=== PATIENT | male | born 1945 | race African-American/Black ===

== ENCOUNTER 2020-09-06 12:12 | Outpatient (REF) | payer MEDICARE, SELFPAY ==
[2020-09-06 12:22] LABS: MANUAL DIFF FLAG NO
[2020-09-06 12:26] LABS: Basophils Percent Auto 0.5 % (0-2); Eosinophils Absolute Auto 0.3 X10*3/uL (0.0-0.4); Eosinophils Percent Auto 3.9 % (0-4); Hematocrit 22.8 % (42-52); Imm Gran Abs Auto 0.04 X10*3/uL (0.00-0.03); Imm Gran Pct Auto 0.5 % (0.0-0.4); Lymphocytes Absolute Auto 2.2 X10*3/uL (1.2-4.9); Lymphocytes Percent Auto 27.4 % (20-40); Mean Corpuscular HGB Conc 29.8 g/dl (31.0-36.0); Mean Corpuscular Hemoglobin 29.6 pg (27.0-33.0); Mean Corpuscular Volume 99.1 fL (80-98); Monocytes Absolute Auto 0.6 X10*3/uL (0.1-1.2); Neutrophils Absolute Auto 4.9 X10*3/uL (2.0-8.3); Neutrophils Percent Auto 60.7 % (45-73); Platelet Count 396 X10*3/uL (160-400); Red Cell Distribution Width 17.2 % (11.0-16.0)
[2020-09-06 13:24] LABS: Hemoglobin 6.8 g/dl (14.0-18.0)
[2020-09-06 13:29] LABS: Albumin Level 3.5 g/dL (3.5-5.0); Calcium 8.4 mg/dL (8.4-10.2); Magnesium 1.7 mg/dL (1.6-2.6); Phosphorus 5.3 mg/dL (2.7-4.5)
[2020-09-06 13:54] LABS: Vitamin D 25-OH Total 36.5 ng/mL (>30)
[2020-09-06 14:02] LABS: Renal w Reflex Lab Use Only Order verified
[2020-09-06 14:16] LABS: Anion Gap 16 (12-20); Blood Urea Nitrogen 46 mg/dL (9-16); Carbon Dioxide 23 mmol/L (22-29); Chloride 106 mmol/L (96-108); Estimated Glomerular Filt Rate 16; Potassium 5.3 mmol/l (3.3-5.1); Sodium 140 mmol/L (135-145)
[2020-09-08 15:07] LABS: Calcium (PTHI) 8.4 mg/dL (8.6-10.3); PTHI 118 pg/mL (14-64)
== END 2020-09-06 12:13 | disposition home or self-care (01) ==
LOC: HO.HVNA 12:12
PROVIDERS: Visit Provider Internal Medicine Nephrology
DX: N17.9 Acute kidney failure, unspecified (principal); E11.21 Type 2 diabetes mellitus with diabetic nephropathy; E11.22 Type 2 diabetes mellitus with diabetic chronic kidney disease; N18.4 Chronic kidney disease, stage 4 (severe); E11.51 Type 2 diabetes mellitus with diabetic peripheral angiopathy without gangrene; K85.90 Acute pancreatitis without necrosis or infection, unspecified; M10.9 Gout, unspecified; I22.2 Subsequent non-ST elevation (NSTEMI) myocardial infarction; I48.91 Unspecified atrial fibrillation
CPT/HCPCS: 36415; 80051; 82040; 82306; 82310; 82565; 83735; 83970; 84100; 84520; 85025

== ENCOUNTER 2020-09-12 13:50 | Emergency (ER) | payer OTHER, MEDICARE, SELFPAY ==
[2020-09-12 14:02] VITALS: BP 116/61; PULSE 74; RESP 15; TEMP 36.6; O2SAT 100; BMI 35.4
--- NOTE | 2020-09-12 14:04 | ED.GENADULT ---
HPI - General Adult General Chief complaint: General Medical Stated complaint: CENTRAL PORT REMOVAL Time Seen by Provider: 09/12/20 14:14 Source: patient, EMS and other ( assistant county attorney) Mode of arrival: EMS Limitations: no limitations History of Present Illness HPI narrative: patient was sent to for PermCath removal by his assistant county attorney Dr. Lopez. He was informed that it was not necessary due to patient no longer being on dialysis. Patient denies any physical complaints. Related Data Allergies Allergy/AdvReac Type Severity Reaction Status Date / Time gabapentin [GABAPENTIN] Allergy Unknown UNKNOWN Verified 09/12/20 17:23 pregabalin Allergy Unknown Cough Verified 09/12/20 17:23 Review of Systems Review of Systems: Patient denies any physical complaints [facility] Past Medical History Medical History (Updated 09/12/20 @ 19:25 by HOLLAND Reid) Arthritis Diabetes 1.5, managed as type 1 Gout High cholesterol HTN (hypertension) Social History Social History Alcohol intake: current Alcohol intake frequency: a few times a week Alcohol type: hard liquor Smoking Status: Never smoker Use of substances other than those prescribed or required for medical reasons: No Advance Directives: Yes Advance Directives Information Provided: Yes Advance Directives on File: No Physical Exam Vital Signs: Vital Signs: Vital Signs Temp Pulse Resp BP Pulse Ox 09/12/20 17:13 98.3 F 71 17 172/70 H 98 09/12/20 14:02 98 F 74 15 116/61 100 Body Mass Index 35.4 Const: General: cooperative, healthy appearing, comfortable, no acute distress, well developed and alert Orientation/consciousness: oriented to person, oriented to place, oriented to time and patient oriented x3 HENMT: Head: Yes normal to inspection Ears: hearing grossly normal bilaterally Eyes: General: appearance normal, both eyes and all related structures Neck: Neck: Yes normal visual inspection and Yes full ROM Chest: Other: Area of permacath negative for redness, pus discharge, tenderness or foul odor. Chest palpation & inspection: normal inspection of the chest and normal palpation of entire chest wall Resp: Effort & Inspection: normal respiratory effort and able to speak in complete sentences Cardio: Jugular venous distension: no JVD Heart sounds: S1 normal heart sound present and S2 normal heart sound present GI: Inspection: Yes normal to inspection Skin: General skin exam: no rashes or lesions noted Neuro: General: oriented to person, oriented to place, oriented to time and patient oriented x3 Extrem: General: Yes normal to inspection and Yes full ROM Course Course Course Narrative: spoke with Dr. Lopez who confirm that he won a PermCath removed. Spoke with IR and they state they will take patients today for removal of PermCath. Dr. Lopez thinks patient might need a blood transfusion due to crit being 6.8 on the 06 of September. Will repeat labs. Reevaluation(s) Reevaluation #1: Repeat labs are at baseline. Patient does not need blood transfusion. PermCath removed. Patient is safe for discharge Time: 19:20 Medical Decision Making MDM Narrative Medical decision making narrative: PermCath removed Lab Data Result diagrams: 09/12/20 18:52 09/12/20 16:09 Labs: Lab Results 09/12/20 09/12/20 09/12/20 Range/Units 16:09 16:09 18:52 WBC 6.9 (4.8-10.8) X10*3/uL RBC 2.55 L (4.60-5.80) X10*6/uL Hgb 7.7 L (14.0-18.0) g/dl Hct 24.4 L (42-52) % MCV 95.7 (80-98) fL MCH 30.2 (27.0-33.0) pg MCHC 31.6 (31.0-36.0) g/dl RDW 16.5 H (11.0-16.0) % Plt Count 317 (160-400) X10*3/uL MPV 9.1 L (9.4-12.4) fL Immature Gran % (Auto) 0.3 (0.0-0.4) % Neut % (Auto) 60.6 (45-73) % Lymph % (Auto) 28.6 (20-40) % [place] % (Auto) 6.4 (2-11) % Eos % (Auto) 3.5 (0-4) % Baso % (Auto) 0.6 (0-2) % Lymph # (Auto) 2.0 (1.2-4.9) X10*3/uL [place] # (Auto) 0.4 (0.1-1.2) X10*3/uL Eos # (Auto) 0.2 (0.0-0.4) X10*3/uL Baso # (Auto) 0.0 (0.0-0.2) X10*3/uL Abs Immat Gran (auto) 0.02 (0.00-0.03) X10*3/uL Absolute Neuts (auto) 4.2 (2.0-8.3) X10*3/uL Absolute Nucleated RBC 0.000 (0.0-0.012) X10*3/uL Nucleated RBC % (auto) 0.0 (0.0-0.2) /100WBC PT (10.8-13.0) SEC INR (0.9-1.1) APTT (24.1-38.0) SEC Sodium 139 (135-145) mmol/L Potassium 4.5 (3.3-5.1) mmol/l Chloride 106 (96-108) mmol/L Carbon Dioxide 22 (22-29) mmol/L Anion Gap 16 (12-20) BUN 39 H (9-16) mg/dL Creatinine 3.63 H (0.5-1.4) mg/dL Estim Creat Clear Calc 22.3 Estimated GFR 17 Random Glucose 171 H (60-115) mg/dL Calcium 8.5 (8.4-10.2) mg/dL Total Bilirubin 0.3 (0.0-1.0) mg/dL AST 16 (5-37) U/L ALT 14 (0-40) U/L Alkaline Phosphatase 154 H (39-117) U/L Total Protein 7.1 (6.5-8.0) g/dL Albumin 3.5 (3.5-5.0) g/dL Blood Type O Positive Antibody Screen NEGATIVE 09/12/20 Range/Units 18:52 WBC (4.8-10.8) X10*3/uL RBC (4.60-5.80) X10*6/uL Hgb (14.0-18.0) g/dl Hct (42-52) % MCV (80-98) fL MCH (27.0-33.0) pg MCHC (31.0-36.0) g/dl RDW (11.0-16.0) % Plt Count (160-400) X10*3/uL MPV (9.4-12.4) fL Immature Gran % (Auto) (0.0-0.4) % Neut % (Auto) (45-73) % Lymph % (Auto) (20-40) % [place] % (Auto) (2-11) % Eos % (Auto) (0-4) % Baso % (Auto) (0-2) % Lymph # (Auto) (1.2-4.9) X10*3/uL [place] # (Auto) (0.1-1.2) X10*3/uL Eos # (Auto) (0.0-0.4) X10*3/uL Baso # (Auto) (0.0-0.2) X10*3/uL Abs Immat Gran (auto) (0.00-0.03) X10*3/uL Absolute Neuts (auto) (2.0-8.3) X10*3/uL Absolute Nucleated RBC (0.0-0.012) X10*3/uL Nucleated RBC % (auto) (0.0-0.2) /100WBC PT 11.7 (10.8-13.0) SEC INR 1.0 (0.9-1.1) APTT 37.1 (24.1-38.0) SEC Sodium (135-145) mmol/L Potassium (3.3-5.1) mmol/l Chloride (96-108) mmol/L Carbon Dioxide (22-29) mmol/L Anion Gap (12-20) BUN (9-16) mg/dL Creatinine (0.5-1.4) mg/dL Estim Creat Clear Calc Estimated GFR Random Glucose (60-115) mg/dL Calcium (8.4-10.2) mg/dL Total Bilirubin (0.0-1.0) mg/dL AST (5-37) U/L ALT (0-40) U/L Alkaline Phosphatase (39-117) U/L Total Protein (6.5-8.0) g/dL Albumin (3.5-5.0) g/dL Blood Type Antibody Screen Discharge Plan Discharge Clinical Impression: Permanent central venous catheter in place Patient Disposition: Home, Self-Care Instructions: Perma-cath Placement (DC) Additional Instructions: PermCath was removed by Interventional Radiology. Return to the ED for any redness, swelling, pus discharge at site of insertion, fever, chills, chest pain, shortness of breath, or any other concerning symptoms. Referrals: Ignacio Lopez MD [Physician] - 2 days ( PermCath was removed. Hemoglobin and hematocrit improved. No need for blood transfusion) Print Language: Sammarinese
--- NOTE | 2020-09-12 14:20 | IR_ITS ---
EXAMINATION: RIGHT INTERNAL JUGULAR PERMCATH REMOVAL CLINICAL INFORMATION: No longer in need for dialysis. COMPARISON: August 08, 2020 TECHNIQUE: Blunt dissection of permacatheter for removal FINDINGS: Using sterile technique and blunt dissection after lidocaine administration the right internal jugular PermCath was removed in its entirety. Patient tolerated procedure without difficulty. IMPRESSION: Right PermCath removal.
[2020-09-12 16:55] LABS: Alanine Aminotransferase 14 U/L (0-40); Albumin Level 3.5 g/dL (3.5-5.0); Alkaline Phosphatase 154 U/L (39-117); Anion Gap 16 (12-20); Aspartate Amino Transferase 16 U/L (5-37); Bilirubin Total 0.3 mg/dL (0.0-1.0); Blood Urea Nitrogen 39 mg/dL (9-16); Calcium 8.5 mg/dL (8.4-10.2); Carbon Dioxide 22 mmol/L (22-29); Chloride 106 mmol/L (96-108); Creatinine Clr Calc Pharmacy 22.3; Estimated Glomerular Filt Rate 17; Glucose Random 171 mg/dL (60-115); Potassium 4.5 mmol/l (3.3-5.1); Sodium 139 mmol/L (135-145); Total Protein 7.1 g/dL (6.5-8.0)
[2020-09-12 17:13] VITALS: BP 172/70; PULSE 71; RESP 17; TEMP 36.8; O2SAT 98
--- NOTE | 2020-09-12 17:22 | PC.NURSE ---
patient with elevated b/p. states hasn't had b/p medication yet. provider aware
[2020-09-12 19:00] LABS: Basophils Percent Auto 0.6 % (0-2); Eosinophils Absolute Auto 0.2 X10*3/uL (0.0-0.4); Eosinophils Percent Auto 3.5 % (0-4); Hematocrit 24.4 % (42-52); Hemoglobin 7.7 g/dl (14.0-18.0); Imm Gran Abs Auto 0.02 X10*3/uL (0.00-0.03); Imm Gran Pct Auto 0.3 % (0.0-0.4); Lymphocytes Percent Auto 28.6 % (20-40); Mean Corpuscular HGB Conc 31.6 g/dl (31.0-36.0); Mean Corpuscular Hemoglobin 30.2 pg (27.0-33.0); Mean Corpuscular Volume 95.7 fL (80-98); Mean Platelet Volume 9.1 fL (9.4-12.4); Monocytes Absolute Auto 0.4 X10*3/uL (0.1-1.2); Monocytes Percent Auto 6.4 % (2-11); Neutrophils Absolute Auto 4.2 X10*3/uL (2.0-8.3); Neutrophils Percent Auto 60.6 % (45-73); Platelet Count 317 X10*3/uL (160-400); Red Blood Count 2.55 X10*6/uL (4.60-5.80); Red Cell Distribution Width 16.5 % (11.0-16.0); White Blood Count 6.9 X10*3/uL (4.8-10.8)
[2020-09-12 19:01] LABS: MANUAL DIFF FLAG NO
[2020-09-12 19:06] LABS: Prothrombin Time 11.7 SEC (10.8-13.0)
[2020-09-12 19:09] LABS: Partial Thromboplastin Time 37.1 SEC (24.1-38.0)
== END 2020-09-12 20:51 | disposition home or self-care (01) ==
PROVIDERS: Physician Assistant; Emergency Provider Emergency Medicine; PCP Internal Medicine
DX: Z45.2 Encounter for adjustment and management of vascular access device (principal); E10.8 Type 1 diabetes mellitus with unspecified complications; I10 Essential (primary) hypertension
CPT/HCPCS: 36415; 36595; 80053; 85025; 85610; 85730; 86850; 86900; 86901; 99284

== ENCOUNTER 2020-09-28 15:06 | Inpatient (IN) | payer OTHER, SELFPAY ==
[2020-09-28] VITALS (16 sets, daily range): BP systolic 77–125; BP diastolic 31–55; PULSE 8–87; RESP 12–18; TEMP 36.9–38.2; O2SAT 97–99; BMI 32.5; BMI 34.8
--- NOTE | 2020-09-28 15:29 | ED_ITS ---
HPI - Fever General Chief Complaint: General Medical Stated Complaint: not feeling well Time Seen by Provider: 09/28/20 15:29 Source: patient and EMS Mode of arrival: EMS Limitations: no limitations History of Present Illness MD elicited complaint: fever and malaise Onset (ago): day(s) (2) Exacerbating factors: nothing Relieving factors: nothing Associated symptoms: chills, night sweats and other (has pain with urination) Treatments prior to arrival fever: none Related Data Home Medications Medication Instructions Recorded Confirmed allopurinol 300 mg PO DAILY 09/28/20 09/28/20 aspirin 81 mg PO DAILY 09/28/20 09/28/20 atorvastatin 20 mg PO DAILY 09/28/20 09/28/20 cholecalciferol (vitamin D3) 50 mcg PO DAILY 09/28/20 09/28/20 clonidine HCl 0.3 mg PO BID 09/28/20 09/28/20 colchicine 1.2 mg PO DAILY PRN 09/28/20 09/28/20 diltiazem HCl 360 mg PO DAILY 09/28/20 09/28/20 docusate sodium 100 mg PO DAILY PRN 09/28/20 09/28/20 ferrous sulfate 325 mg PO BID 09/28/20 09/28/20 folic acid 1 mg PO DAILY 09/28/20 09/28/20 glyburide 5 mg PO BID 09/28/20 09/28/20 insulin glargine [Lantus Solostar 36 unit SUBCUT BEDTIME 09/28/20 09/28/20 U-100 Insulin] metoprolol tartrate 50 mg PO BID 09/28/20 09/28/20 oxycodone-acetaminophen [Percocet] 1 tab PO BID PRN 09/28/20 09/28/20 tamsulosin 0.4 mg PO DAILY 09/28/20 09/28/20 Allergies Allergy/AdvReac Type Severity Reaction Status Date / Time gabapentin [GABAPENTIN] Allergy Unknown UNKNOWN Verified 09/28/20 15:27 pregabalin Allergy Unknown Cough Verified 09/28/20 15:27 Review of Systems Review of Systems: Constitutional : No Weight loss, pos Fever, pos Chills, pos Fatigue, pos Malaise ENT/Mouth : No sore throat, No Rhinorrhea Eyes: No Eye Pain, No Swelling, No Redness Cardiovascular : No Chest Pain, No SOB, No Dyspnea on Exertion, No Orthopnea, No Edema, No Palpitations Respiratory : No Cough, No Sputum, No Wheezing Gastrointestinal : No Nausea, No Vomiting, No Diarrhea, No Constipation, No abdominal Pain, No Hematochezia, No Melena Genitourinary : pos Dysuria, pos Urinary Frequency, No Hematuria, Musculoskeletal : No joint pain, No Myalgias, No Joint Swelling Skin : No Skin Lesions, No rash Neuro : No Weakness, No Numbness, No Dizziness, No Headache Psych : No Anxiety/Panic, No Depression All other systems reviewed and are negative [facility] Past Medical History Medical History Arthritis Diabetes 1.5, managed as type 1 Gout High cholesterol HTN (hypertension) Social History Social History Alcohol intake: current Alcohol intake frequency: a few times a week Alcohol type: hard liquor Smoking Status: Never smoker Smoked in Last 30 Days: No Use of substances other than those prescribed or required for medical reasons: No Advance Directives: No Advance Directives Information Provided: No Physical Exam Vital Signs: Vital Signs: Last Vital Signs Temp 100.8 F H 09/28/20 15:28 Pulse 71 09/28/20 16:24 Resp 18 09/28/20 16:24 BP 91/44 L 09/28/20 16:24 Pulse Ox 98 09/28/20 15:28 Body Mass Index 32.5 Appearance: Alert. Oriented X3. No acute distress. Eyes: Pupils equal, round and reactive to light. ENT: Pharynx normal. Neck: Normal inspection. Neck supple. CVS: Normal heart rate and rhythm. Pulses normal. Respiratory: No respiratory distress. Breath sounds normal. Abdomen: Soft and nontender. Skin: Skin warm and dry. Normal skin color. Normal skin turgor. Extremities: No lower extremity edema. No calf ttp Neuro: Oriented X 3. No motor deficit. No sensory deficit. Course Course Course Narrative: cultures were drawn prior to antibiotic administration after initial start of 500c fluids BP up to 91/[address] Gong pending further workup MDM - Fever MDM Narrative Medical decision making narrative: 74 yo male with hx of DM, HTN, pancreatitis, CKD, NSTEMI here with fevers/malaise, dysuria at this time will need labs, cultures, lactic acid, CXR, UA, 30cc/kg bolus, empiric ceftriaxone, likely ad javi, COVID swab ordered as well Lab Data Result diagrams: 09/28/20 16:08 09/28/20 16:08 Labs: Lab Results 09/28/20 09/28/20 Range/Units 16:08 16:08 WBC 11.3 H (4.8-10.8) X10*3/uL RBC 2.45 L (4.60-5.80) X10*6/uL Hgb 7.3 L (14.0-18.0) g/dl Hct 23.5 L (42-52) % MCV 95.9 (80-98) fL MCH 29.8 (27.0-33.0) pg MCHC 31.1 (31.0-36.0) g/dl RDW 16.4 H (11.0-16.0) % Plt Count 369 (160-400) X10*3/uL MPV 10.1 (9.4-12.4) fL Immature Gran % (Auto) 1.7 H (0.0-0.4) % Neut % (Auto) 74.0 H (45-73) % Lymph % (Auto) 15.5 L (20-40) % [place] % (Auto) 6.8 (2-11) % Eos % (Auto) 1.2 (0-4) % Baso % (Auto) 0.8 (0-2) % Lymph # (Auto) 1.8 (1.2-4.9) X10*3/uL [place] # (Auto) 0.8 (0.1-1.2) X10*3/uL Eos # (Auto) 0.1 (0.0-0.4) X10*3/uL Baso # (Auto) 0.1 (0.0-0.2) X10*3/uL Abs Immat Gran (auto) 0.19 H (0.00-0.03) X10*3/uL Absolute Neuts (auto) 8.4 H (2.0-8.3) X10*3/uL Absolute Nucleated RBC 0.000 (0.0-0.012) X10*3/uL Nucleated RBC % (auto) 0.0 (0.0-0.2) /100WBC Hold Blue Top SEE NOTE Critical Care Time Critical Care Time Critical Care Time: Yes Total Critical Care Time: 35 Attestation: IV antibiotics, 30cc/kg bolus fluids > 2L of fluid I attest to this time spent taking care of the patient Discharge Plan Discharge Clinical Impression: Fever Prescriptions: No Action atorvastatin 40 mg Tablet 20 mg PO DAILY RF: 0 glyburide 5 mg Tablet 5 mg PO BID RF: 0 clonidine HCl 0.3 mg Tablet 0.3 mg PO BID RF: 0 aspirin 81 mg Tablet,Delayed Release (Dr/Ec) 81 mg PO DAILY RF: 0 oxycodone-acetaminophen [Percocet] 10-325 mg Tablet 1 tab PO BID PRN (Reason: Pain (Scale Score 7-10)) RF: 0 tamsulosin 0.4 mg Capsule 0.4 mg PO DAILY RF: 0 ferrous sulfate 325 mg (65 mg iron) Tablet 325 mg PO BID RF: 0 metoprolol tartrate 50 mg Tablet 50 mg PO BID RF: 0 docusate sodium 100 mg Capsule 100 mg PO DAILY PRN (Reason: Constipation) RF: 0 folic acid 1 mg Tablet 1 mg PO DAILY RF: 0 allopurinol 300 mg Tablet 300 mg PO DAILY RF: 0 colchicine 0.6 mg Tablet 1.2 mg PO DAILY PRN (Reason: gout) RF: 0 diltiazem HCl 360 mg Tablet Extended Release 24 Hr 360 mg PO DAILY RF: 0 Lantus Solostar U-100 Insulin 100 unit/mL (3 mL) Insulin Pen 36 unit SUBCUT BEDTIME RF: 0 cholecalciferol (vitamin D3) 50 mcg (2,000 unit) Tablet 50 mcg PO DAILY RF: 0
--- NOTE | 2020-09-28 15:29 | ECG_ITS ---
Test Reason : HYPERTENSION Blood Pressure : / mmHG Vent. Rate : 066 BPM Atrial Rate : 066 BPM P-R Int : 192 ms QRS Dur : 090 ms QT Int : 592 ms P-R-T Axes : 054 032 197 degrees QTc Int : 620 ms Normal sinus rhythm ST & Marked T wave abnormality, consider anterolateral ischemia Prolonged QT Low voltage QRS Abnormal ECG When compared with ECG of 03-AUG-2020 16:51, T wave inversion now evident in Inferior leads T wave inversion now evident in Anterolateral leads QT has lengthened Referred By: Linda Smith Electronically Signed By:KAMILA SINGLETON MD
--- NOTE | 2020-09-28 15:30 | XR_ITS ---
EXAMINATION: XR CHEST CLINICAL INFORMATION: Fever. COMPARISON: None TECHNIQUE: Frontal view of the chest was obtained. FINDINGS: The left hemidiaphragm is elevated. There is platelike atelectasis in left lower lobe. Rest of lungs are expanded and clear. The heart size and pulmonary vascularity is normal. No gross bony abnormality seen. XR/XR chest 1V IMPRESSION: Platelike atelectasis left lower lobe.
[2020-09-28 16:18] LABS: MANUAL DIFF FLAG NO
[2020-09-28 16:19] LABS: Basophils Absolute Auto 0.1 X10*3/uL (0.0-0.2); Basophils Percent Auto 0.8 % (0-2); Eosinophils Absolute Auto 0.1 X10*3/uL (0.0-0.4); Eosinophils Percent Auto 1.2 % (0-4); Hematocrit 23.5 % (42-52); Hemoglobin 7.3 g/dl (14.0-18.0); Imm Gran Abs Auto 0.19 X10*3/uL (0.00-0.03); Imm Gran Pct Auto 1.7 % (0.0-0.4); Lymphocytes Absolute Auto 1.8 X10*3/uL (1.2-4.9); Lymphocytes Percent Auto 15.5 % (20-40); Mean Corpuscular HGB Conc 31.1 g/dl (31.0-36.0); Mean Corpuscular Hemoglobin 29.8 pg (27.0-33.0); Mean Corpuscular Volume 95.9 fL (80-98); Mean Platelet Volume 10.1 fL (9.4-12.4); Monocytes Absolute Auto 0.8 X10*3/uL (0.1-1.2); Monocytes Percent Auto 6.8 % (2-11); Neutrophils Absolute Auto 8.4 X10*3/uL (2.0-8.3); Platelet Count 369 X10*3/uL (160-400); Red Blood Count 2.45 X10*6/uL (4.60-5.80); Red Cell Distribution Width 16.4 % (11.0-16.0); White Blood Count 11.3 X10*3/uL (4.8-10.8)
[2020-09-28] MEDS: cefTRIAXone sodium 1 GM in 0.9 % Sodium Chloride 50 ML IV (16:26)
[2020-09-28] MEDS: Acetaminophen 325 MG TABLET 650 MG PO (16:26)
--- NOTE | 2020-09-28 16:29 | PC.NURSE ---
remains altert, skin pwd despite low bps'
[2020-09-28 16:45] LABS: Lactic Acid 1.5 mmol/L (0.5-2.0)
--- NOTE | 2020-09-28 16:59 | PC.NURSE ---
pt unable to tolerate straight catheter. pt with resistance when catheter attempted. dr notified. pt refusing catheter at this time. vss. pt a/o x3 skin pink warm and dry
--- NOTE | 2020-09-28 17:26 | PC.NURSE ---
remains alert despite lower bp. md aware . 2nd and 3rd liters up.
[2020-09-28 18:09] LABS: SARS COV2 PCR INHOUSE NEGATIVE (Negative)
--- NOTE | 2020-09-28 18:59 | PC.NURSE ---
update to girlfriend, royce, states bp meds have been taken when he remembers
--- NOTE | 2020-09-28 19:00 | PC.NURSE ---
according to girlfriend patient may need dialysis. he needed it last time and didn't follow up with continual routine. dialysis.
--- NOTE | 2020-09-28 19:12 | ED_ITS ---
HPI - General Adult General Chief complaint: General Medical Stated complaint: not feeling well Time Seen by Provider: 09/28/20 15:29 Source: patient and EMS Mode of arrival: EMS Limitations: no limitations Related Data Home Medications Medication Instructions Recorded Confirmed allopurinol 300 mg PO DAILY 09/28/20 09/28/20 aspirin 81 mg PO DAILY 09/28/20 09/28/20 atorvastatin 20 mg PO DAILY 09/28/20 09/28/20 cholecalciferol (vitamin D3) 50 mcg PO DAILY 09/28/20 09/28/20 clonidine HCl 0.3 mg PO BID 09/28/20 09/28/20 colchicine 1.2 mg PO DAILY PRN 09/28/20 09/28/20 diltiazem HCl 360 mg PO DAILY 09/28/20 09/28/20 docusate sodium 100 mg PO DAILY PRN 09/28/20 09/28/20 ferrous sulfate 325 mg PO BID 09/28/20 09/28/20 folic acid 1 mg PO DAILY 09/28/20 09/28/20 glyburide 5 mg PO BID 09/28/20 09/28/20 insulin glargine [Lantus Solostar 36 unit SUBCUT BEDTIME 09/28/20 09/28/20 U-100 Insulin] metoprolol tartrate 50 mg PO BID 09/28/20 09/28/20 oxycodone-acetaminophen [Percocet] 1 tab PO BID PRN 09/28/20 09/28/20 tamsulosin 0.4 mg PO DAILY 09/28/20 09/28/20 Allergies Allergy/AdvReac Type Severity Reaction Status Date / Time gabapentin [GABAPENTIN] Allergy Unknown UNKNOWN Verified 09/28/20 15:27 pregabalin Allergy Unknown Cough Verified 09/28/20 15:27 [facility] Past Medical History Medical History Arthritis Diabetes 1.5, managed as type 1 Gout High cholesterol HTN (hypertension) Social History Social History Alcohol intake: current Alcohol intake frequency: a few times a week Alcohol type: hard liquor Smoking Status: Never smoker Smoked in Last 30 Days: No Use of substances other than those prescribed or required for medical reasons: No Advance Directives: No Advance Directives Information Provided: No Physical Exam Vital Signs: Vital Signs: Last Vital Signs Temp 98.5 F 09/28/20 23:21 Pulse 86 09/28/20 23:21 Resp 16 09/28/20 23:21 BP 93/54 L 09/28/20 23:21 Pulse Ox 97 09/28/20 22:33 Body Mass Index 34.8 Course Course Course Narrative: patient 74 years old bed-bound secondary to severe arthritis came here for increased weakness and decreased urine output for last few days with history of VIDYA in the past and UTI also had low-grade fever and fatigue workup showed creatinine of 5.38 with potassium 4.1 also EKG showed significant ST depression in anterolateral leads with elevated troponin to 2500. which could be secondary to demand ischemia but is too high. Patient's CT head is negative for any acute ICH. Case discussed Dr. Zhang networking technology instructor advise IV heparin. Patient denied any chest pain. Patient's blood pressure improved after IV fluids patient hypotension is secondary to acute coronary event and acute renal failure not from sepsis patient received IV antibiotics and IV fluids focused exam for sepsis was done at 20:00. Admit patient to [facility] [place] Medical Decision Making Lab Data Result diagrams: 09/28/20 16:08 09/28/20 19:28 Labs: Lab Results 09/28/20 09/28/20 09/28/20 Range/Units 16:08 16:08 16:08 WBC 11.3 H (4.8-10.8) X10*3/uL RBC 2.45 L (4.60-5.80) X10*6/uL Hgb 7.3 L (14.0-18.0) g/dl Hct 23.5 L (42-52) % MCV 95.9 (80-98) fL MCH 29.8 (27.0-33.0) pg MCHC 31.1 (31.0-36.0) g/dl RDW 16.4 H (11.0-16.0) % Plt Count 369 (160-400) X10*3/uL MPV 10.1 (9.4-12.4) fL Immature Gran % (Auto) 1.7 H (0.0-0.4) % Neut % (Auto) 74.0 H (45-73) % Lymph % (Auto) 15.5 L (20-40) % Coal % (Auto) 6.8 (2-11) % Eos % (Auto) 1.2 (0-4) % Baso % (Auto) 0.8 (0-2) % Lymph # (Auto) 1.8 (1.2-4.9) X10*3/uL [place] # (Auto) 0.8 (0.1-1.2) X10*3/uL Eos # (Auto) 0.1 (0.0-0.4) X10*3/uL Baso # (Auto) 0.1 (0.0-0.2) X10*3/uL Abs Immat Gran (auto) 0.19 H (0.00-0.03) X10*3/uL Absolute Neuts (auto) 8.4 H (2.0-8.3) X10*3/uL Absolute Nucleated RBC 0.000 (0.0-0.012) X10*3/uL Nucleated RBC % (auto) 0.0 (0.0-0.2) /100WBC PT 12.2 (10.8-13.0) SEC INR 1.0 (0.9-1.1) APTT 29.7 (24.1-38.0) SEC Hold Blue Top SEE NOTE Sodium Cancelled Potassium Cancelled Chloride Cancelled Carbon Dioxide Cancelled Anion Gap Cancelled BUN Cancelled Creatinine Cancelled Estim Creat Clear Calc Cancelled Estimated GFR Cancelled Random Glucose Cancelled Lactic Acid (0.5-2.0) mmol/L Calcium Cancelled Magnesium Total Bilirubin Direct Bilirubin AST ALT Alkaline Phosphatase Troponin I High Sens (<3.5-35.0) ng/L Total Protein Albumin Lipase Urine Color Urine Appearance Urine pH (5.0-8.0) Ur Specific [place] (1.005-1.025) Urine Protein (NEG-TRACE) MG/DL Urine Glucose (UA) (NEG) MG/DL Urine Ketones (NEG) MG/DL Urine Blood (NEG) Urine Nitrite (NEG) Ur Leukocyte Esterase (NEG) Urine RBC (0) /HPF Urine WBC (0-4) /HPF Ur Squamous Epith Cells /LPF Urine Bacteria /LPF Coronavirus (PCR) (Negative) 09/28/20 09/28/20 09/28/20 Range/Units 16:08 16:08 16:21 WBC (4.8-10.8) X10*3/uL RBC (4.60-5.80) X10*6/uL Hgb (14.0-18.0) g/dl Hct (42-52) % MCV (80-98) fL MCH (27.0-33.0) pg MCHC (31.0-36.0) g/dl RDW (11.0-16.0) % Plt Count (160-400) X10*3/uL MPV (9.4-12.4) fL Immature Gran % (Auto) (0.0-0.4) % Neut % (Auto) (45-73) % Lymph % (Auto) (20-40) % [place] % (Auto) (2-11) % Eos % (Auto) (0-4) % Baso % (Auto) (0-2) % Lymph # (Auto) (1.2-4.9) X10*3/uL [place] # (Auto) (0.1-1.2) X10*3/uL Eos # (Auto) (0.0-0.4) X10*3/uL Baso # (Auto) (0.0-0.2) X10*3/uL Abs Immat Gran (auto) (0.00-0.03) X10*3/uL Absolute Neuts (auto) (2.0-8.3) X10*3/uL Absolute Nucleated RBC (0.0-0.012) X10*3/uL Nucleated RBC % (auto) (0.0-0.2) /100WBC PT (10.8-13.0) SEC INR (0.9-1.1) APTT (24.1-38.0) SEC Hold Blue Top Sodium Potassium Chloride Carbon Dioxide Anion Gap BUN Creatinine Estim Creat Clear Calc Estimated GFR Random Glucose Lactic Acid 1.5 (0.5-2.0) mmol/L Calcium Magnesium Cancelled Total Bilirubin Cancelled Direct Bilirubin Cancelled AST Cancelled ALT Cancelled Alkaline Phosphatase Cancelled Troponin I High Sens (<3.5-35.0) ng/L Total Protein Cancelled Albumin Cancelled Lipase Cancelled Urine Color Urine Appearance Urine pH (5.0-8.0) Ur Specific [place] (1.005-1.025) Urine Protein (NEG-TRACE) MG/DL Urine Glucose (UA) (NEG) MG/DL Urine Ketones (NEG) MG/DL Urine Blood (NEG) Urine Nitrite (NEG) Ur Leukocyte Esterase (NEG) Urine RBC (0) /HPF Urine WBC (0-4) /HPF Ur Squamous Epith Cells /LPF Urine Bacteria /LPF Coronavirus (PCR) NEGATIVE (Negative) 09/28/20 09/28/20 09/28/20 Range/Units 19:28 19:28 19:28 WBC (4.8-10.8) X10*3/uL RBC (4.60-5.80) X10*6/uL Hgb (14.0-18.0) g/dl Hct (42-52) % MCV (80-98) fL MCH (27.0-33.0) pg MCHC (31.0-36.0) g/dl RDW (11.0-16.0) % Plt Count (160-400) X10*3/uL MPV (9.4-12.4) fL Immature Gran % (Auto) (0.0-0.4) % Neut % (Auto) (45-73) % Lymph % (Auto) (20-40) % [place] % (Auto) (2-11) % Eos % (Auto) (0-4) % Baso % (Auto) (0-2) % Lymph # (Auto) (1.2-4.9) X10*3/uL [place] # (Auto) (0.1-1.2) X10*3/uL Eos # (Auto) (0.0-0.4) X10*3/uL Baso # (Auto) (0.0-0.2) X10*3/uL Abs Immat Gran (auto) (0.00-0.03) X10*3/uL Absolute Neuts (auto) (2.0-8.3) X10*3/uL Absolute Nucleated RBC (0.0-0.012) X10*3/uL Nucleated RBC % (auto) (0.0-0.2) /100WBC PT (10.8-13.0) SEC INR (0.9-1.1) APTT (24.1-38.0) SEC Hold Blue Top Sodium Cancelled Potassium Cancelled Chloride Cancelled Carbon Dioxide Cancelled Anion Gap Cancelled BUN Cancelled Creatinine Cancelled Estim Creat Clear Calc Cancelled Estimated GFR Cancelled Random Glucose Cancelled Lactic Acid (0.5-2.0) mmol/L Calcium Cancelled Magnesium Total Bilirubin Cancelled Direct Bilirubin Cancelled AST Cancelled ALT Cancelled Alkaline Phosphatase Cancelled Troponin I High Sens 2500.2 H (<3.5-35.0) ng/L Total Protein Cancelled Albumin Cancelled Lipase Cancelled Urine Color YELLOW Urine Appearance TURBID Urine pH 6.5 (5.0-8.0) Ur Specific [place] 1.025 (1.005-1.025) Urine Protein 3+ H (NEG-TRACE) MG/DL Urine Glucose (UA) NEG (NEG) MG/DL Urine Ketones 5 (NEG) MG/DL Urine Blood 3+ H (NEG) Urine Nitrite POS H (NEG) Ur Leukocyte Esterase 2+ H (NEG) Urine RBC 5-9 H (0) /HPF Urine WBC TNTC H (0-4) /HPF Ur Squamous Epith Cells TRACE /LPF Urine Bacteria 3+ /LPF Coronavirus (PCR) (Negative) 09/28/20 Range/Units 19:28 WBC (4.8-10.8) X10*3/uL RBC (4.60-5.80) X10*6/uL Hgb (14.0-18.0) g/dl Hct (42-52) % MCV (80-98) fL MCH (27.0-33.0) pg MCHC (31.0-36.0) g/dl RDW (11.0-16.0) % Plt Count (160-400) X10*3/uL MPV (9.4-12.4) fL Immature Gran % (Auto) (0.0-0.4) % Neut % (Auto) (45-73) % Lymph % (Auto) (20-40) % [place] % (Auto) (2-11) % Eos % (Auto) (0-4) % Baso % (Auto) (0-2) % Lymph # (Auto) (1.2-4.9) X10*3/uL [place] # (Auto) (0.1-1.2) X10*3/uL Eos # (Auto) (0.0-0.4) X10*3/uL Baso # (Auto) (0.0-0.2) X10*3/uL Abs Immat Gran (auto) (0.00-0.03) X10*3/uL Absolute Neuts (auto) (2.0-8.3) X10*3/uL Absolute Nucleated RBC (0.0-0.012) X10*3/uL Nucleated RBC % (auto) (0.0-0.2) /100WBC PT (10.8-13.0) SEC INR (0.9-1.1) APTT (24.1-38.0) SEC Hold Blue Top Sodium 144 Potassium 4.1 Chloride 113 H Carbon Dioxide 20 L Anion Gap 15 BUN 54 H Creatinine 5.38 H* Estim Creat Clear Calc 14.4 Estimated GFR 11 Random Glucose 74 D Lactic Acid (0.5-2.0) mmol/L Calcium 7.0 L D Magnesium 1.6 Total Bilirubin < 0.2 Direct Bilirubin < 0.2 AST 14 ALT 9 Alkaline Phosphatase 83 D Troponin I High Sens (<3.5-35.0) ng/L Total Protein 5.8 L Albumin 2.9 L Lipase 16 Urine Color Urine Appearance Urine pH (5.0-8.0) Ur Specific [place] (1.005-1.025) Urine Protein (NEG-TRACE) MG/DL Urine Glucose (UA) (NEG) MG/DL Urine Ketones (NEG) MG/DL Urine Blood (NEG) Urine Nitrite (NEG) Ur Leukocyte Esterase (NEG) Urine RBC (0) /HPF Urine WBC (0-4) /HPF Ur Squamous Epith Cells /LPF Urine Bacteria /LPF Coronavirus (PCR) (Negative) ECG Data Attestation: I personally reviewed and interpreted this ECG as follows: Prior ECG tracings: available for review Interpretation: normal sinus rhythm heart rate [address] and T-wave abnormality with ST depression and T inversion in lead 1 lead 2, V2 V3 V4 V5 V6 suggestive of anterolateral ischemia prolonged QT of 620 millisecond Critical Care Time Critical Care Time Critical Care Time: Yes Total Critical Care Time: 45 Attestation: critical care involved patient care Discharge Plan Discharge Clinical Impression: Acute UTI, Non-ST elevated myocardial infarction (non-STEMI) Acute renal failure superimposed on chronic kidney disease Qualifiers: Acute renal failure type: with acute tubular necrosis Chronic kidney disease stage: stage 4 (severe) Qualified Code(s): N17.0 - Acute kidney failure with tubular necrosis Patient Disposition: Admitted As Inpatient
[2020-09-28] MEDS: 0.9 % Sodium Chloride 1,000 ML 999 ML IVCONT (19:30)
[2020-09-28 19:41] LABS: Glucose Urine UA NEG (NEG); Leukocyte Esterase Urine 2+ (NEG); Nitrite Urine POS (NEG); PH 6.5 (5.0-8.0); Specific Gravity - Urine 1.025 (1.005-1.025); Urine Blood 3+ (NEG); Urine Ketones 5 MG/DL (NEG); Urine Protein 3+ MG/DL (NEG-TRACE)
[2020-09-28 19:53] LABS: Appearance Urine TURBID; Color Urine YELLOW
[2020-09-28 20:08] LABS: Bacteria Urine 3+ /LPF; Squamous Epithelial Cell Urine TRACE /LPF; WBC Urine TNTC /HPF (0-4)
[2020-09-28 20:14] LABS: Alanine Aminotransferase 9 U/L (0-40); Albumin Level 2.9 g/dL (3.5-5.0); Alkaline Phosphatase 83 U/L (39-117); Anion Gap 15 (12-20); Aspartate Amino Transferase 14 U/L (5-37); Bilirubin Direct < 0.2 mg/dL (0.0-0.5); Bilirubin Total < 0.2 mg/dL (0.0-1.0); Blood Urea Nitrogen 54 mg/dL (9-16); Carbon Dioxide 20 mmol/L (22-29); Chloride 113 mmol/L (96-108); Creatinine Clr Calc Pharmacy 14.4; Estimated Glomerular Filt Rate 11; Glucose Random 74 mg/dL (60-115); Lipase 16 U/L (8-78); Magnesium 1.6 mg/dL (1.6-2.6); Potassium 4.1 mmol/l (3.3-5.1); Sodium 144 mmol/L (135-145); Total Protein 5.8 g/dL (6.5-8.0)
[2020-09-28 20:21] LABS: Troponin-I High Sensitivity 2500.2 ng/L (<3.5-35.0)
--- NOTE | 2020-09-28 20:42 | CT_ITS ---
EXAMINATION: CT HEAD WITHOUT CONTRAST CLINICAL INFORMATION: Abnormal EKG. Concern for intracranial hemorrhage COMPARISON: None TECHNIQUE: Contiguous axial imaging was performed from the skull base to vertex without intravenous administration of contrast. Coronal and sagittal reformatted images are performed at the CT scanner This CT examination was performed using dose optimization techniques as appropriate, variously including the following: *Automated exposure control *Adjustment of mA and/or kV according to patient size (this includes techniques or standardized protocols for targeted exams where dose is matched to indication/reason for exam; i.e. extremities or head) *Use of iterative reconstruction technique DLP: 841 mGy-cm FINDINGS: There is no evidence of acute intracranial hemorrhage or territorial infarction. No abnormal mass effect or midline shift is seen. [place] to white matter differentiation is well preserved. No extra-axial fluid collections are identified. Physiologic mineralization in the basal ganglia bilaterally. The ventricles are normal in size for patient age. No acute parenchymal abnormality. There are vascular calcification of the internal carotid arteries bilaterally. The osseous structures and soft tissues are normal. The mastoid air cells and visualized portions of the paranasal sinuses are well aerated. CT/CT head/brain wo con IMPRESSION: No acute intracranial pathology.
--- NOTE | 2020-09-28 21:17 | PC.NURSE ---
back from ct. pt aware of plan for ct reading then heparin drip. continues to deny cp. skin pwd. inverted t wave lead 2 since arrival. skin pwd. 4th liter almost complete.
[2020-09-28 22:26] LABS: Prothrombin Time 12.2 SEC (10.8-13.0)
[2020-09-28] MEDS: Heparin Sodium,Porcine 5,000 UNIT/ML VIAL 6000 UNIT IVPUSH (22:26)
[2020-09-28] MEDS: Heparin Sodium,Porcine/1/2NS 25,000 UNIT/250 ML IV.SOLN 10 UNIT IVCONT (22:28)
[2020-09-28 22:29] LABS: Partial Thromboplastin Time 29.7 SEC (24.1-38.0)
--- NOTE | 2020-09-28 23:48 | PC.NURSE ---
pt was a difficult stick for repeat troponin and creat. pt has begun to urinate slightly more that at arrival. i/o complete with 125ml out natural void. skin pwd. inverted t waves noted on monitor lead 2. pt is awaiting admission.
--- NOTE | 2020-09-29 00:05 | PM.IMHP ---
History of Present Illness Date of Service: 09/29/20 Chief Complaint: Decreased urinary stream 74 y/o male with an extensive PMHX who presented from home due to decreased urinary stream. Per history provided by the patient the symptoms started today, where he felt like he was unable to urinate properly . On presentation to the ED he was found to be borderline hypotensive which improved with IV fluids per ED. WBC of 11.3, Hgb 7.3 (baseline), creatinine of 5.3 (baseline 3.6), Troponin 2500 x 1, Calcium 7.0. UA positive for UTI. One dose of Rocephin given per ED. Ordained Minister consulted given significant elevation of troponin who recommended to start with Heparin drip. EKG shows a prolonged QT of 620 with anterolateral T wave inversion. 1 g of Calcium gluconate as well as 2g of magnesium ordered stat. Decision for admission given. Patient seen and evaluated at the bedside, laying down in bed in no acute distress. ROS as above otherwise negative. Physical exam positive for obesity. PMHX: 1. History of pancreatitis. 2. Diabetes. 3. Hypertension. 4. Iron deficiency/anemia of chronic disease. 5. CKD, stage 4. 6. History of gout. 7. Intermittent documented history of atrial fibrillation, not on anticoagulation. 8. Chronic pain on chronic opiates. 9. History of NSTEMI. 10. Recent admission in June for sepsis related to pneumonia versus UTI, NAHID, and NSTEMI requiring ICU level of care. He was discharged on July 19. PAST SURGICAL HISTORY: 1. Right ankle surgery. 2. Bilateral knee surgery. Toxic habits: No hx of alcohol abuse, smoking or IVDA Review of Systems Genitourinary: Genitourinary: Reports difficulty urinating [facility] Medical History Arthritis Diabetes 1.5, managed as type 1 Gout High cholesterol HTN (hypertension) Functional capacity: bed bound Social History Alcohol intake: current Alcohol intake frequency: a few times a week Alcohol type: hard liquor Smoking Status: Never smoker Smoked in Last 30 Days: No Use of substances other than those prescribed or required for medical reasons: No Advance Directives: No Advance Directives Information Provided: No Meds Allergies Allergy/AdvReac Type Severity Reaction Status Date / Time gabapentin [GABAPENTIN] Allergy Unknown UNKNOWN Verified 09/28/20 15:27 pregabalin Allergy Unknown Cough Verified 09/28/20 15:27 Home Medications Medication Instructions Recorded Confirmed Type allopurinol 300 mg PO DAILY 09/28/20 09/28/20 History aspirin 81 mg PO DAILY 09/28/20 09/28/20 History atorvastatin 20 mg PO DAILY 09/28/20 09/28/20 History cholecalciferol (vitamin D3) 50 mcg PO DAILY 09/28/20 09/28/20 History clonidine HCl 0.3 mg PO BID 09/28/20 09/28/20 History colchicine 1.2 mg PO DAILY PRN 09/28/20 09/28/20 History diltiazem HCl 360 mg PO DAILY 09/28/20 09/28/20 History docusate sodium 100 mg PO DAILY PRN 09/28/20 09/28/20 History ferrous sulfate 325 mg PO BID 09/28/20 09/28/20 History folic acid 1 mg PO DAILY 09/28/20 09/28/20 History glyburide 5 mg PO BID 09/28/20 09/28/20 History insulin glargine [Lantus Solostar 36 unit SUBCUT BEDTIME 09/28/20 09/28/20 History U-100 Insulin] metoprolol tartrate 50 mg PO BID 09/28/20 09/28/20 History oxycodone-acetaminophen [Percocet] 1 tab PO BID PRN 09/28/20 09/28/20 History tamsulosin 0.4 mg PO DAILY 09/28/20 09/28/20 History Physical Exam Vital Signs and Narrative: Vital Signs: Last Vital Signs Temp 98.5 F 09/28/20 23:21 Pulse 86 09/28/20 23:21 Resp 16 09/28/20 23:21 BP 93/54 L 09/28/20 23:21 Pulse Ox 97 09/28/20 22:33 Body Mass Index 34.8 Const: General: cooperative and comfortable Orientation/consciousness: patient oriented x3 HENMT: Head: Yes normal to inspection Eyes: General: appearance normal, both eyes and all related structures Neck: Yes normal visual inspection Chest: Chest palpation & inspection: normal inspection of the chest Resp: Effort & Inspection: normal respiratory effort Cardio: Jugular venous distension: no JVD Rate: regular rate Rhythm: regular rhythm Heart sounds: S1 normal heart sound present and S2 normal heart sound present GI: Inspection: Yes normal to inspection Skin: General skin exam: no rashes or lesions noted Neuro: General: patient oriented x3 Results Labs CBC and Chem 7: 09/28/20 16:08 09/28/20 19:28 Labs: Laboratory Results - last 24 hr 09/28/20 09/28/20 09/28/20 16:08 16:08 16:08 MCV 95.9 MCH 29.8 MCHC 31.1 RDW 16.4 H Plt Count 369 MPV 10.1 Immature Gran % (Auto) 1.7 H Neut % (Auto) 74.0 H Lymph % (Auto) 15.5 L [place] % (Auto) 6.8 Eos % (Auto) 1.2 Baso % (Auto) 0.8 Lymph # (Auto) 1.8 [place] # (Auto) 0.8 Eos # (Auto) 0.1 Baso # (Auto) 0.1 Abs Immat Gran (auto) 0.19 H Absolute Neuts (auto) 8.4 H Absolute Nucleated RBC 0.000 Nucleated RBC % (auto) 0.0 PT 12.2 INR 1.0 APTT 29.7 Hold Blue Top SEE NOTE Anion Gap Cancelled Estim Creat Clear Calc Cancelled Estimated GFR Cancelled Random Glucose Cancelled Lactic Acid Calcium Cancelled Magnesium Total Bilirubin Direct Bilirubin AST ALT Alkaline Phosphatase Total Creatine Kinase Troponin I High Sens Total Protein Albumin Lipase Urine Color Urine Appearance Urine pH Ur Specific [place] Urine Protein Urine Glucose (UA) Urine Ketones Urine Blood Urine Nitrite Ur Leukocyte Esterase Urine RBC Urine WBC Ur Squamous Epith Cells Urine Bacteria Coronavirus (PCR) 09/28/20 09/28/20 09/28/20 16:08 16:08 16:21 MCV MCH MCHC RDW Plt Count MPV Immature Gran % (Auto) Neut % (Auto) Lymph % (Auto) [place] % (Auto) Eos % (Auto) Baso % (Auto) Lymph # (Auto) [place] # (Auto) Eos # (Auto) Baso # (Auto) Abs Immat Gran (auto) Absolute Neuts (auto) Absolute Nucleated RBC Nucleated RBC % (auto) PT INR APTT Hold Blue Top Anion Gap Estim Creat Clear Calc Estimated GFR Random Glucose Lactic Acid 1.5 Calcium Magnesium Cancelled Total Bilirubin Cancelled Direct Bilirubin Cancelled AST Cancelled ALT Cancelled Alkaline Phosphatase Cancelled Total Creatine Kinase Troponin I High Sens Total Protein Cancelled Albumin Cancelled Lipase Cancelled Urine Color Urine Appearance Urine pH Ur Specific [place] Urine Protein Urine Glucose (UA) Urine Ketones Urine Blood Urine Nitrite Ur Leukocyte Esterase Urine RBC Urine WBC Ur Squamous Epith Cells Urine Bacteria Coronavirus (PCR) NEGATIVE 09/28/20 09/28/20 09/28/20 19:28 19:28 19:28 MCV MCH MCHC RDW Plt Count MPV Immature Gran % (Auto) Neut % (Auto) Lymph % (Auto) [place] % (Auto) Eos % (Auto) Baso % (Auto) Lymph # (Auto) [place] # (Auto) Eos # (Auto) Baso # (Auto) Abs Immat Gran (auto) Absolute Neuts (auto) Absolute Nucleated RBC Nucleated RBC % (auto) PT INR APTT Hold Blue Top Anion Gap Cancelled Estim Creat Clear Calc Cancelled Estimated GFR Cancelled Random Glucose Cancelled Lactic Acid Calcium Cancelled Magnesium Total Bilirubin Cancelled Direct Bilirubin Cancelled AST Cancelled ALT Cancelled Alkaline Phosphatase Cancelled Total Creatine Kinase Troponin I High Sens 2500.2 H Total Protein Cancelled Albumin Cancelled Lipase Cancelled Urine Color YELLOW Urine Appearance TURBID Urine pH 6.5 Ur Specific [place] 1.025 Urine Protein 3+ H Urine Glucose (UA) NEG Urine Ketones 5 Urine Blood 3+ H Urine Nitrite POS H Ur Leukocyte Esterase 2+ H Urine RBC 5-9 H Urine WBC TNTC H Ur Squamous Epith Cells TRACE Urine Bacteria 3+ Coronavirus (PCR) 09/28/20 09/28/20 19:28 23:28 MCV MCH MCHC RDW Plt Count MPV Immature Gran % (Auto) Neut % (Auto) Lymph % (Auto) [place] % (Auto) Eos % (Auto) Baso % (Auto) Lymph # (Auto) [place] # (Auto) Eos # (Auto) Baso # (Auto) Abs Immat Gran (auto) Absolute Neuts (auto) Absolute Nucleated RBC Nucleated RBC % (auto) PT INR APTT Hold Blue [place] Anion Gap 15 Estim Creat Clear Calc 14.4 Estimated GFR 11 Random Glucose 74 D Lactic Acid Calcium 7.0 L D Magnesium 1.6 Total Bilirubin < 0.2 Direct Bilirubin < 0.2 AST 14 ALT 9 Alkaline Phosphatase 83 D Total Creatine Kinase 67 Troponin I High Sens Total Protein 5.8 L Albumin 2.9 L Lipase 16 Urine Color Urine Appearance Urine pH Ur Specific [place] Urine Protein Urine Glucose (UA) Urine Ketones Urine Blood Urine Nitrite Ur Leukocyte Esterase Urine RBC Urine WBC Ur Squamous Epith Cells Urine Bacteria Coronavirus (PCR) Imaging Radiologist's Impressions: Impressions Chest X-Ray 09/28/20 15:30 IMPRESSION: Platelike atelectasis left lower lobe. Head CT 09/28/20 20:42 IMPRESSION: No acute intracranial pathology. Assessment and Plan (1) Non-ST elevated myocardial infarction (non-STEMI): Status: Acute Initial troponin of 2500, EKG showing prolonged QT and T wave inversion in anterolateral leads. Patient asymptomatic Follow second troponin level threat monitoring analyst Heparin drip per cardio recs follow up 2d echo in the am Cardiology consult in the am (2) Acute UTI: Status: Acute s/p one dose of Rocephin per Ed Continue with Rocephin for gram neg coverage Follow up Bcx and Ucx (3) Acute renal failure superimposed on chronic kidney disease: Qualifiers: Acute renal failure type: with acute tubular necrosis Chronic kidney disease stage: stage 4 (severe) Qualified Code(s): N17.0 - Acute kidney failure with tubular necrosis; N18.4 - Chronic kidney disease, stage 4 (severe) Status: Acute Nahid on CKD creatinine of 6.38 with baseline of 3.6 Follow up US abdomen Insert melvin now Nephrology consult in the am (4) Anemia: Status: Acute anemia likely of chronic disease. Baseline Hgb of 7.7 monitor for now continue with iron home dose (5) Diabetes 1.5, managed as type 1: Status: Acute Insulin regimen as ordered (6) High cholesterol: Status: Acute continue with statin home dose (7) Gout: Status: Acute continue with allopurinol home dose continue with colchicine home dose (8) HTN (hypertension): Status: Acute Hold all BP meds given borderline hypotension will monitor for now. SIRS criteria negative for sepsis (9) BPH (benign prostatic hyperplasia): Status: Acute continue with flomax home dose (10) Constipation: Status: Acute continue with colace home dose
[2020-09-29 00:13] LABS: Troponin-I High Sensitivity 2136.6 ng/L (<3.5-35.0)
[2020-09-29 01:34] VITALS: BP 154/64; PULSE 102; RESP 16; TEMP 36.7; O2SAT 96
--- NOTE | 2020-09-29 01:39 | ECG_ITS ---
Test Reason : QTc Blood Pressure : / mmHG Vent. Rate : 086 BPM Atrial Rate : 092 BPM P-R Int : 184 ms QRS Dur : 090 ms QT Int : 470 ms P-R-T Axes : 062 004 206 degrees QTc Int : 562 ms Normal sinus rhythm ST & Marked T wave abnormality, consider anterolateral ischemia Prolonged QT Abnormal ECG When compared with ECG of 29-SEP-2020 03:40, No significant changes seen Referred By: Pancho Grimaldo Electronically Signed By: KAMILA SINGLETON MD [facility]
[2020-09-29 01:43] VITALS: BMI 34.8
[2020-09-29] MEDS: Calcium Gluconate/NaCl,Iso-Osm 1 GM/50 ML PLAST..BAG IV (01:52)
[2020-09-29] MEDS: Magnesium Sulfate/H2O 2 GM/50 ML PIGGYBACK IV (02:46)
[2020-09-29 04:00] VITALS: BP 125/59; PULSE 85; RESP 16; TEMP 36.7; O2SAT 99
--- NOTE | 2020-09-29 04:48 | P.EN_ITS ---
Event Note Date of Service: 09/29/20 Event Note: QTc improving from 620 to 598 after calcium and mag IV administrati on. EKG to be repeated in the am.
--- NOTE | 2020-09-29 04:48 | PM.EVENT ---
Event Note Date of Service: 09/29/20 Event Note: QTc improving from 620 to 598 after calcium and mag IV administration. EKG to be repeated in the am.
[2020-09-29 05:11] LABS: PTT Heparin Drip 56.7 SEC (53-77.9)
[2020-09-29] MEDS: cefTRIAXone sodium 1 GM in 0.9 % Sodium Chloride 50 ML IV (06:29)
[2020-09-29] MEDS: oxyCODONE HCl Immed Release 5 MG TABLET PO ×2 (06:53→21:19)
[2020-09-29 07:05] VITALS: BP 141/58; PULSE 89; RESP 18; TEMP 36.7; O2SAT 99
[2020-09-29 07:14] LABS: Glucose, Whole Blood 49 mg/dL (60-115)
[2020-09-29 08:08] LABS: Glucose, Whole Blood 86 mg/dL (60-115)
[2020-09-29] MEDS: Cholecalciferol (Vitamin D3) 25 MCG TABLET 50 MCG PO (09:32)
[2020-09-29] MEDS: Atorvastatin Calcium 20 MG TABLET PO (09:32)
[2020-09-29] MEDS: Tamsulosin HCL 0.4 MG CAPSULE PO (09:32)
[2020-09-29] MEDS: Ferrous Sulfate 324 MG TABLET.DR PO ×2 (09:32→21:19)
[2020-09-29] MEDS: Aspirin Enteric Coated 81 MG TABLET.DR PO (09:32)
[2020-09-29] MEDS: Folic Acid 1 MG TABLET PO (09:32)
[2020-09-29] MEDS: 0.9 % Sodium Chloride Flush 3 ML SYRINGE IVFLUSH ×3 (09:33→21:22)
[2020-09-29] MEDS: allopurinoL 300 MG TABLET PO (09:37)
--- NOTE | 2020-09-29 10:32 | HO.PM.IMPN ---
Subjective Subjective Date of Service: 09/29/20 Interval History: f/u for uti, chest pain, no new issues Physical Exam Vital Signs: Vital Signs: Last Vital Signs Temp 98.0 F 09/29/20 07:05 Pulse 89 09/29/20 07:05 Resp 18 09/29/20 07:05 BP 141/58 H 09/29/20 07:05 Pulse Ox 99 09/29/20 07:05 Body Mass Index 34.8 General: AO X 3, no acute distress Resp: CTA bilateral CVS: S1,S2,RRR GI: +BS, NT, no distention Skin: No rash Neuro: motor grossly intact Psych: appropriate affect Objective Data Current Medications Generic Name Dose Route Start Last Admin Trade Name Freq PRN Reason Stop Dose Admin Allopurinol 300 mg 09/29/20 09:00 09/29/20 09:37 Allopurinol 300 Mg Tablet PO 300 mg DAILY CHIKI Administration Aspirin 81 mg 09/29/20 09:00 09/29/20 09:32 Aspirin Enteric Coated 81 Mg Tablet. PO 81 mg DAILY CHIKI Administration Atorvastatin Calcium 20 mg 09/29/20 09:00 09/29/20 09:32 Atorvastatin Calcium 20 Mg Tablet PO 20 mg DAILY CHIKI Administration Colchicine 1.2 mg 09/28/20 23:57 Colchicine 0.6 Mg Tablet PO DAILY PRN gout Docusate Sodium 100 mg 09/28/20 23:57 Docusate Sodium 100 Mg Capsule PO DAILY PRN Constipation Ferrous Sulfate 324 mg 09/29/20 09:00 09/29/20 09:32 Ferrous Sulfate 324 Mg Tablet. PO 324 mg BID CHIKI Administration Folic Acid 1 mg 09/29/20 09:00 09/29/20 09:32 Folic Acid 1 Mg Tablet PO 1 mg DAILY CHIKI Administration Heparin Sodium (Porcine) 6,000 unit 09/28/20 21:51 09/28/20 22:26 Heparin Sodium,Porcine 5,000 Unit/Ml Vial IVPUSH 6,000 unit BOLUS PRN Administration HEPARINPR8 Heparin Sodium/Sodium Chloride 25,000 unit in 250 mls @ 0 mls/hr 09/28/20 22:00 09/29/20 02:14 IVCONT 9.346 units/kg/hr .Q0M CHIKI 10 mls/hr Titration Protocol Per Protocol Ceftriaxone Sodium 1 gm/ 50 mls @ 100 mls/hr 09/29/20 06:00 09/29/20 08:09 Sodium Chloride IV Infused Q24H CHIKI Infusion Insulin Human Lispro 0 unit 09/29/20 07:30 09/29/20 09:33 Insulin Lispro 100 Unit/Ml 3 Ml Vial SUBCUT 09/30/20 00:05 Not Given QIDACHS [facility] Protocol Pharmacy Consult 1 each 09/28/20 15:32 Consult Rx Perform Med Rec MISCELLANE ONCE PRN Consult order Sodium Chloride 3 ml 09/29/20 08:00 09/29/20 09:33 0.9 % Sodium Chloride Flush 3 Ml Syringe IVFLUSH 3 ml QSHIFT HCIKI Administration Tamsulosin HCl 0.4 mg 09/29/20 09:00 09/29/20 09:32 Tamsulosin Hcl 0.4 Mg Capsule PO 0.4 mg DAILY CHIKI Administration Vitamin D 50 mcg 09/29/20 09:00 09/29/20 09:32 Cholecalciferol (Vitamin D3) 25 Mcg Tablet PO 50 mcg DAILY CHIKI Administration Labs CBC & Chem 7: 10/02/20 05:46 10/02/20 05:46 Assessment and Plan (1) Acute UTI: Status: Acute Assessment and Plan: 74M presented with difficulty urinating VIDYA/CKD--improving UTI ceftriaxone, follow-up cultures NSTMEI 48hr heparin DM insulin QT prolongation monitor, mag replaced, hold qt prolonging meds
--- NOTE | 2020-09-29 10:42 | P.CONNP_ITS ---
History of Present Illness Reason for Consult Consult date: 09/29/20 Reason for consult: NAHID Chief Complaint Chief complaint: Anterolateral T waves inversion, NSTEMI History of Present Illness Narrative: C/O unable to void..my prostate to big Noted in ER NAHID and BP low Feeling better now woth melvin inplace He had required short term HD but was able to come off HD and PCath was removed 2 wks ago. Deneis uremic symptoms Trp elevaeted and ques ekfg changes and now started on IV heparin as well PMFSH Past Medical History Medical History (Updated 09/29/20 @ 00:24 by Pancho Grimaldo MD) Arthritis Diabetes 1.5, managed as type 1 Gout High cholesterol HTN (hypertension) Functional capacity: bed bound Social History Social History Household Members: Spouse Housing: [facility] [place] Do you presently have visiting nurse or other home services: Yes Alcohol intake: current Alcohol intake frequency: a few times a week Alcohol type: hard liquor Smoking Status: Never smoker Smoked in Last 30 Days: No Use of substances other than those prescribed or required for medical reasons: No Have you been hit, kicked, punched, or otherwise hurt by someone within the past year? If so, by whom?: No Do you feel safe in your current relationship?: No Is there a partner from a previous relationship who is making you feel unsafe now?: No Are you made to feel afraid or neglected: No Advance Directives: No Advance Directives Information Provided: No Advance Directives on File: No Do you have thoughts of harming others: None Do you have a plan to hurt others: No Plan Recently lost weight without trying: No Meds Allergies Allergy/AdvReac Type Severity Reaction Status Date / Time gabapentin [GABAPENTIN] Allergy Unknown UNKNOWN Verified 09/28/20 15:27 pregabalin Allergy Unknown Cough Verified 09/28/20 15:27 Home Medications Medication Instructions Recorded Confirmed Type allopurinol 300 mg PO DAILY 09/28/20 09/28/20 History aspirin 81 mg PO DAILY 09/28/20 09/28/20 History atorvastatin 20 mg PO DAILY 09/28/20 09/28/20 History cholecalciferol (vitamin D3) 50 mcg PO DAILY 09/28/20 09/28/20 History clonidine HCl 0.3 mg PO BID 09/28/20 09/28/20 History colchicine 1.2 mg PO DAILY PRN 09/28/20 09/28/20 History diltiazem HCl 360 mg PO DAILY 09/28/20 09/28/20 History docusate sodium 100 mg PO DAILY PRN 09/28/20 09/28/20 History ferrous sulfate 325 mg PO BID 09/28/20 09/28/20 History folic acid 1 mg PO DAILY 09/28/20 09/28/20 History glyburide 5 mg PO BID 09/28/20 09/28/20 History insulin glargine [Lantus Solostar 36 unit SUBCUT BEDTIME 09/28/20 09/28/20 History U-100 Insulin] metoprolol tartrate 50 mg PO BID 09/28/20 09/28/20 History oxycodone-acetaminophen [Percocet] 1 tab PO BID PRN 09/28/20 09/28/20 History tamsulosin 0.4 mg PO DAILY 09/28/20 09/28/20 History Physical Exam Vital Signs: Last Vital Signs Temp 98.0 F 09/29/20 07:05 Pulse 89 09/29/20 07:05 Resp 18 09/29/20 07:05 BP 141/58 H 09/29/20 07:05 Pulse Ox 99 09/29/20 07:05 Body Mass Index 34.8 Appearance: Alert. Oriented X3. No acute distress. Eyes: Pupils equal, round and reactive to light. ENT: Pharynx normal. Neck: Normal inspection. Neck supple. CVS: Normal heart rate and rhythm. Pulses normal. Respiratory: No respiratory distress. Breath sounds normal. Abdomen: Soft and nontender. Skin: Skin warm and dry. Normal skin color. Normal skin turgor. Extremities: No lower extremity edema. No calf ttp Neuro: Oriented X 3. No motor deficit. No sensory deficit. Const General: cooperative and comfortable Orientation/consciousness: patient oriented x3 HENKY Head: Yes normal to inspection Eyes General: appearance normal, both eyes and all related structures Neck Neck: Yes normal visual inspection Chest Chest palpation & inspection: normal inspection of the chest Resp Effort & Inspection: normal respiratory effort Cardio Jugular venous distension: no JVD Rate: regular rate Rhythm: regular rhythm Heart sounds: S1 normal heart sound present and S2 normal heart sound present GI Inspection: Yes normal to inspection Skin General skin exam: no rashes or lesions noted Neuro General: patient oriented x3 Results Lab Results Result Diagrams: 09/28/20 16:08 09/28/20 19:28 Lab results: Chemistry 09/28/20 09/28/20 09/28/20 16:08 19:28 19:28 Sodium Cancelled Cancelled 144 Potassium Cancelled Cancelled 4.1 Carbon Dioxide Cancelled Cancelled 20 L BUN Cancelled Cancelled 54 H Creatinine Cancelled Cancelled 5.38 H* Calcium Cancelled Cancelled 7.0 L D Hematology 09/28/20 16:08 WBC 11.3 H Hgb 7.3 L Plt Count 369 Urinalysis 09/28/20 19:28 Urine Color YELLOW Urine Appearance TURBID Urine pH 6.5 Ur Specific [place] 1.025 Urine Protein 3+ H Urine Glucose (UA) NEG Urine Ketones 5 Urine Blood 3+ H Urine Nitrite POS H Ur Leukocyte Esterase 2+ H Urine RBC 5-9 H Urine WBC TNTC H Ur Squamous Epith Cells TRACE Laboratory Tests 08/10/20 09/06/20 09/12/20 06:17 11:00 16:09 Hgb 8.0 L 6.8 L* Creatinine 3.63 H 09/28/20 09/28/20 16:08 19:28 Hgb 7.3 L Creatinine 5.38 H* Assessment and Plan (1) Non-ST elevated myocardial infarction (non-STEMI): Status: Acute Initial troponin of 2500, EKG showing prolonged QT and T wave inversion in anterolateral leads. Patient asymptomatic Follow second troponin level cardiac catheterization technician Heparin drip per cardio recs follow up 2d echo in the am Cardiology consult in the am (2) Acute UTI: Status: Acute s/p one dose of Rocephin per Ed Continue with Rocephin for gram neg coverage Follow up Bcx and Ucx (3) Acute renal failure superimposed on chronic kidney disease: Qualifiers: Acute renal failure type: with acute tubular necrosis Chronic kidney disease stage: stage 4 (severe) Qualified Code(s): N17.0 - Acute kidney failure with tubular necrosis; N18.4 - Chronic kidney disease, stage 4 (severe) Status: Acute Nahid on CKD creatinine of 6.38 with baseline of 3.6 Follow up US abdomen Insert melvin now Nephrology consult in the am (4) Anemia: Status: Acute anemia likely of chronic disease. Baseline Hgb of 7.7 monitor for now continue with iron home dose (5) Diabetes 1.5, managed as type 1: Status: Acute Insulin regimen as ordered (6) High cholesterol: Status: Acute continue with statin home dose (7) Gout: Status: Acute continue with allopurinol home dose continue with colchicine home dose (8) HTN (hypertension): Status: Acute Hold all BP meds given borderline hypotension will monitor for now. SIRS criteria negative for sepsis (9) BPH (benign prostatic hyperplasia): Status: Acute continue with flomax home dose (10) Constipation: Status: Acute 1. NAHID: most c/w OBs uropathy from BENTLEY; now has melvin other poss will need to be considered if SCr does not return to bsl 2. CKD 4: SCr bsl 3.5-4.0 range; c/w DN 3. Anemia: will investigate IV Fe and procrit 4. DM 5. CAD ? 6. MBD of CKD 7. BENTLEY REC: track UOP/renal func; protect LUE for future AVF; check Fe stores and start procrit and possibly Fe; avoid NToxins; urol eval of BENTLEY; no indicatin for HD at this time but supsect he will need to be on diaklysis in next 6-12 monhts
--- NOTE | 2020-09-29 10:47 | P.CONCA_ITS ---
History of Present Illness History of Present Illness Date of Consult: September 29, 2020 Requesting physician: Emre Vega Chief complaint: Anterolateral T waves inversion, NSTEMI Narrative: 74-year-old gentleman who is admitted with decreased urine output and weakness. He was found to have urine tract infection and was started on an tibiotics. He was also hypotensive On admission. His troponin levels were 2500 with the new anterolateral deep T-wave inversions. He continues to have same changes. He has prolonged QTC also. On discussing with him he has no chest discomfort shortness of breath. He said he came to the hospital primarily because he was not passing enough urine. He has background of anemia, hypertension, gout, diabetes, BPH and advanced kidney disease. Recently was in the hospital and had kidney injury requiring temporary dialysis. His PermCath was removed recently because his creatinine improved. He is saying that he is spending most of time in wheelchair. he appears quite deconditioned. In June he was admitted with sepsis and at that time had a type 2 VT. At that time also he had significant anterolateral T-wave inversions similar to what he had on this admission. He left the hospital with same changes. On 08/03/2020 had repeat EKG which was normal. Now he is presenting again with sepsis and urinary tract infection and he has similar anterolateral T-wave inversions. He has no symptoms. His cardiac enzymes are high this time but the trend is downward right now. Review of Systems Review of Systems: No chest pain, shortness breath. Yes all other systems are reviewed and are negative [facility] Past Medical History Medical History (Updated 09/29/20 @ 11:02 by Leon Zhang MD) Arthritis Diabetes 1.5, managed as type 1 Gout High cholesterol HTN (hypertension) Functional capacity: bed bound Social History Social History Household Members: Spouse Housing: Condominium Do you presently have visiting nurse or other home services: Yes Alcohol intake: current Alcohol intake frequency: a few times a week Alcohol type: hard liquor Smoking Status: Never smoker Smoked in Last 30 Days: No Use of substances other than those prescribed or required for medical reasons: No Have you been hit, kicked, punched, or otherwise hurt by someone within the past year? If so, by whom?: No Do you feel safe in your current relationship?: No Is there a partner from a previous relationship who is making you feel unsafe now?: No Are you made to feel afraid or neglected: No Advance Directives: No Advance Directives Information Provided: No Advance Directives on File: No Do you have thoughts of harming others: None Do you have a plan to hurt others: No Plan Recently lost weight without trying: No Meds Allergies Allergy/AdvReac Type Severity Reaction Status Date / Time gabapentin [GABAPENTIN] Allergy Unknown UNKNOWN Verified 09/28/20 15:27 pregabalin Allergy Unknown Cough Verified 09/28/20 15:27 Home Medications Medication Instructions Recorded Confirmed Type allopurinol 300 mg PO DAILY 09/28/20 09/28/20 History aspirin 81 mg PO DAILY 09/28/20 09/28/20 History atorvastatin 20 mg PO DAILY 09/28/20 09/28/20 History cholecalciferol (vitamin D3) 50 mcg PO DAILY 09/28/20 09/28/20 History clonidine HCl 0.3 mg PO BID 09/28/20 09/28/20 History colchicine 1.2 mg PO DAILY PRN 09/28/20 09/28/20 History diltiazem HCl 360 mg PO DAILY 09/28/20 09/28/20 History docusate sodium 100 mg PO DAILY PRN 09/28/20 09/28/20 History ferrous sulfate 325 mg PO BID 09/28/20 09/28/20 History folic acid 1 mg PO DAILY 09/28/20 09/28/20 History glyburide 5 mg PO BID 09/28/20 09/28/20 History insulin glargine [Lantus Solostar 36 unit SUBCUT BEDTIME 09/28/20 09/28/20 History U-100 Insulin] metoprolol tartrate 50 mg PO BID 09/28/20 09/28/20 History oxycodone-acetaminophen [Percocet] 1 tab PO BID PRN 09/28/20 09/28/20 History tamsulosin 0.4 mg PO DAILY 09/28/20 09/28/20 History Physical Exam Vital Signs: Vital Signs: Last Vital Signs Temp 98.0 F 09/29/20 07:05 Pulse 89 09/29/20 07:05 Resp 18 09/29/20 07:05 BP 141/58 H 09/29/20 07:05 Pulse Ox 99 09/29/20 07:05 Body Mass Index 34.8 GENERAL APPEARANCE: in no acute distress. HEENT: unremarkable. HEAD: normocephalic, atraumatic. NECK/THYROID: no carotid bruit, no jugular venous distention. SKIN: no suspicious lesions, warm and dry. HEART: no murmurs, regular rate and rhythm, S1, S2 normal. LUNGS: clear to auscultation bilaterally. ABDOMEN: normal, bowel sounds present, soft, nontender, nondistended. EXTREMITIES: no clubbing, cyanosis, or edema. PERIPHERAL PULSES: equal. NEUROLOGIC: nonfocal, alert and oriented. PSYCH: mood/affect full range. Results Labs and Meds Result diagrams: 09/28/20 16:08 09/28/20 19:28 Lab results: Laboratory Results - last 24 hr 09/28/20 09/28/20 09/28/20 16:08 16:08 16:08 WBC 11.3 H RBC 2.45 L Hgb 7.3 L Hct 23.5 L MCV 95.9 MCH 29.8 MCHC 31.1 RDW 16.4 H Plt Count 369 MPV 10.1 Immature Gran % (Auto) 1.7 H Neut % (Auto) 74.0 H Lymph % (Auto) 15.5 L [place] % (Auto) 6.8 Eos % (Auto) 1.2 Baso % (Auto) 0.8 Lymph # (Auto) 1.8 [place] # (Auto) 0.8 Eos # (Auto) 0.1 Baso # (Auto) 0.1 Abs Immat Gran (auto) 0.19 H Absolute Neuts (auto) 8.4 H Absolute Nucleated RBC 0.000 Nucleated RBC % (auto) 0.0 PT 12.2 INR 1.0 APTT 29.7 PTT (Heparin Protocol) Hold Blue Top SEE NOTE Sodium Cancelled Potassium Cancelled Chloride Cancelled Carbon Dioxide Cancelled Anion Gap Cancelled BUN Cancelled Creatinine Cancelled Estim Creat Clear Calc Cancelled Estimated GFR Cancelled POC Glucose Random Glucose Cancelled Lactic Acid Calcium Cancelled Magnesium Total Bilirubin Direct Bilirubin AST ALT Alkaline Phosphatase Total Creatine Kinase Troponin I High Sens Total Protein Albumin Lipase Urine Color Urine Appearance Urine pH Ur Specific [place] Urine Protein Urine Glucose (UA) Urine Ketones Urine Blood Urine Nitrite Ur Leukocyte Esterase Urine RBC Urine WBC Ur Squamous Epith Cells Urine Bacteria Coronavirus (PCR) 09/28/20 09/28/20 09/28/20 16:08 16:08 16:21 WBC RBC Hgb Hct MCV MCH MCHC RDW Plt Count MPV Immature Gran % (Auto) Neut % (Auto) Lymph % (Auto) [place] % (Auto) Eos % (Auto) Baso % (Auto) Lymph # (Auto) [place] # (Auto) Eos # (Auto) Baso # (Auto) Abs Immat Gran (auto) Absolute Neuts (auto) Absolute Nucleated RBC Nucleated RBC % (auto) PT INR APTT PTT (Heparin Protocol) Hold Blue Top Sodium Potassium Chloride Carbon Dioxide Anion Gap BUN Creatinine Estim Creat Clear Calc Estimated GFR POC Glucose Random Glucose Lactic Acid 1.5 Calcium Magnesium Cancelled Total Bilirubin Cancelled Direct Bilirubin Cancelled AST Cancelled ALT Cancelled Alkaline Phosphatase Cancelled Total Creatine Kinase Troponin I High Sens Total Protein Cancelled Albumin Cancelled Lipase Cancelled Urine Color Urine Appearance Urine pH Ur Specific [place] Urine Protein Urine Glucose (UA) Urine Ketones Urine Blood Urine Nitrite Ur Leukocyte Esterase Urine RBC Urine WBC Ur Squamous Epith Cells Urine Bacteria Coronavirus (PCR) NEGATIVE 09/28/20 09/28/20 09/28/20 19:28 19:28 19:28 WBC RBC Hgb Hct MCV MCH MCHC RDW Plt Count MPV Immature Gran % (Auto) Neut % (Auto) Lymph % (Auto) [place] % (Auto) Eos % (Auto) Baso % (Auto) Lymph # (Auto) [place] # (Auto) Eos # (Auto) Baso # (Auto) Abs Immat Gran (auto) Absolute Neuts (auto) Absolute Nucleated RBC Nucleated RBC % (auto) PT INR APTT PTT (Heparin Protocol) Hold Blue Top Sodium Cancelled Potassium Cancelled Chloride Cancelled Carbon Dioxide Cancelled Anion Gap Cancelled BUN Cancelled Creatinine Cancelled Estim Creat Clear Calc Cancelled Estimated GFR Cancelled POC Glucose Random Glucose Cancelled Lactic Acid Calcium Cancelled Magnesium Total Bilirubin Cancelled Direct Bilirubin Cancelled AST Cancelled ALT Cancelled Alkaline Phosphatase Cancelled Total Creatine Kinase Troponin I High Sens 2500.2 H Total Protein Cancelled Albumin Cancelled Lipase Cancelled Urine Color YELLOW Urine Appearance TURBID Urine pH 6.5 Ur Specific [place] 1.025 Urine Protein 3+ H Urine Glucose (UA) NEG Urine Ketones 5 Urine Blood 3+ H Urine Nitrite POS H Ur Leukocyte Esterase 2+ H Urine RBC 5-9 H Urine WBC TNTC H Ur Squamous Epith Cells TRACE Urine Bacteria 3+ Coronavirus (PCR) 09/28/20 09/28/20 09/28/20 19:28 23:28 23:28 WBC RBC Hgb Hct MCV MCH MCHC RDW Plt Count MPV Immature Gran % (Auto) Neut % (Auto) Lymph % (Auto) [place] % (Auto) Eos % (Auto) Baso % (Auto) Lymph # (Auto) [place] # (Auto) Eos # (Auto) Baso # (Auto) Abs Immat Gran (auto) Absolute Neuts (auto) Absolute Nucleated RBC Nucleated RBC % (auto) PT INR APTT PTT (Heparin Protocol) Hold Blue Top Sodium 144 Potassium 4.1 Chloride 113 H Carbon Dioxide 20 L Anion Gap 15 BUN 54 H Creatinine 5.38 H* Estim Creat Clear Calc 14.4 Estimated GFR 11 POC Glucose Random Glucose 74 D Lactic Acid Calcium 7.0 L D Magnesium 1.6 Total Bilirubin < 0.2 Direct Bilirubin < 0.2 AST 14 ALT 9 Alkaline Phosphatase 83 D Total Creatine Kinase 67 Troponin I High Sens 2136.6 H Total Protein 5.8 L Albumin 2.9 L Lipase 16 Urine Color Urine Appearance Urine pH Ur Specific [place] Urine Protein Urine Glucose (UA) Urine Ketones Urine Blood Urine Nitrite Ur Leukocyte Esterase Urine RBC Urine WBC Ur Squamous Epith Cells Urine Bacteria Coronavirus (PCR) 09/29/20 09/29/20 09/29/20 04:27 07:10 08:04 WBC RBC Hgb Hct MCV MCH MCHC RDW Plt Count MPV Immature Gran % (Auto) Neut % (Auto) Lymph % (Auto) [place] % (Auto) Eos % (Auto) Baso % (Auto) Lymph # (Auto) [place] # (Auto) Eos # (Auto) Baso # (Auto) Abs Immat Gran (auto) Absolute Neuts (auto) Absolute Nucleated RBC Nucleated RBC % (auto) PT INR APTT PTT (Heparin Protocol) 56.7 Hold Blue Top Sodium Potassium Chloride Carbon Dioxide Anion Gap BUN Creatinine Estim Creat Clear Calc Estimated GFR POC Glucose 49 L* 86 Random Glucose Lactic Acid Calcium Magnesium Total Bilirubin Direct Bilirubin AST ALT Alkaline Phosphatase Total Creatine Kinase Troponin I High Sens Total Protein Albumin Lipase Urine Color Urine Appearance Urine pH Ur Specific [place] Urine Protein Urine Glucose (UA) Urine Ketones Urine Blood Urine Nitrite Ur Leukocyte Esterase Urine RBC Urine WBC Ur Squamous Epith Cells Urine Bacteria Coronavirus (PCR) EKG Interpretation EKG Comments: Sinus rhythm with Premature supraventricular complexes ST & Marked T wave abnormality, consider anterolateral ischemia Prolonged QT Abnormal ECG When compared with ECG of 28-SEP-2020 17:49, Premature supraventricular complexes are now Present Assessment and Plan (1) Non-ST elevated myocardial infarction (non-STEMI): Status: Acute (2) Acute renal failure superimposed on chronic kidney disease: Qualifiers: Acute renal failure type: with acute tubular necrosis Chronic kidney disease stage: stage 4 (severe) Qualified Code(s): N17.0 - Acute kidney failure with tubular necrosis; N18.4 - Chronic kidney disease, stage 4 (severe) Status: Acute (3) Acute UTI: Status: Acute (4) Prolonged QT interval: Status: Acute 74-year-old gentleman with significant risk factors for coronary artery disease was presenting with urinary tract infection. His ECG is showing significant anterolateral T-wave inversions with prolonged QTC. He has no symptoms. Clinically not in heart failure right now. He has similar presentation in June when he developed similar changes which improved in July. The differentials for this presentation are acute coronary syndrome versus takotsubo cardiomyopathy. Given his risk factors for coronary disease I think we treat him as NSTEMI right now. He has been on heparin drip which I think we should continue for at least 48 hours. He is on baby aspirin. I think we loaded with Plavix 300 mg followed by 75 mg once a day. Given his advanced kidney issues and recent need for short-term dialysis, I had a discussion with the patient and currently he has opted for medical management. Obviously if he gets any chest discomfort or becomes unstable then he may require discussion about cardiac catheterization. Currently he is stable. We will repeat an echocardiogram on him. He has significantly prolonged QT interval. Please monitor his electrolytes closely. Please do not give any medications that can prolong QT interval. We will follow along with you. Thank you for allowing me to participate in the care of your patient. Please feel free to contact me if you have any questions.
[2020-09-29 11:03] VITALS: BP 136/58; PULSE 84; RESP 18; TEMP 36.8; O2SAT 96
[2020-09-29 11:42] LABS: PTT Heparin Drip 42.3 SEC (53-77.9)
[2020-09-29 11:43] LABS: Glucose, Whole Blood 177 mg/dL (60-115)
[2020-09-29] MEDS: Clopidogrel Bisulfate 300 MG TABLET PO (12:47)
[2020-09-29] MEDS: Insulin Lispro 100 UNIT/ML 3 ML VIAL SUBCUT ×3 (12:48→21:21)
--- NOTE | 2020-09-29 13:10 | MHC.CM.PN ---
Pt reports he lives at home with his girlfriend who also assists with his care. Pt reports he is active with [facility]. Pt is bed bound and requires BLS transport. Pts current DC plan is to return home with resumption of [facility]
[2020-09-29] MEDS: Heparin Sodium,Porcine 5,000 UNIT/ML VIAL IVPUSH (13:52)
[2020-09-29 15:05] VITALS: BP 127/59; PULSE 91; RESP 18; TEMP 37.3; O2SAT 98
[2020-09-29 15:57] LABS: Glucose, Whole Blood 164 mg/dL (60-115)
[2020-09-29 17:03] LABS: PTT Heparin Drip 153.5 SEC (53-77.9)
[2020-09-29 18:08] LABS: PTT Heparin Drip 101.9 SEC (53-77.9)
[2020-09-29 19:10] LABS: PTT Heparin Drip 60.4 SEC (53-77.9)
[2020-09-29 19:47] VITALS: BP 138/55; PULSE 86; RESP 20; TEMP 36.4; O2SAT 100
[2020-09-29 21:04] LABS: Glucose, Whole Blood 161 mg/dL (60-115)
[2020-09-30] VITALS (7 sets, daily range): BP systolic 153–181; BP diastolic 71–78; PULSE 93–110; RESP 18–20; TEMP 35.7–37.1; O2SAT 97–100
[2020-09-30] MEDS: Heparin Sodium,Porcine/1/2NS 25,000 UNIT/250 ML IV.SOLN 8.92 UNIT IVCONT (03:16)
[2020-09-30] MEDS: cefTRIAXone sodium 1 GM in 0.9 % Sodium Chloride 50 ML IV (05:50)
--- NOTE | 2020-09-30 06:38 | PC.NURSE ---
PT A VERY DIFFICULT STICK. REDRAW OF PTT FOR HEPARIN GTT WAS SUPPOSED TO BE DONE AT 0345 BUT THE [facility] CUTTER WAS UNABLE TO OBTAIN SPECIMEN. THIS RN ATTEMPTED TO DRAW LABS WELL WITHOUT SUCCESS. NURSING RING STRIKER SONJA CALLED AND INSTRUCTED TO WAIT FOR THE NEXT SHIFT OF PHLEBOTOMY TO ATTEMPT TO DRAW PATIENTS LABS. AT APPROXIMATELY 0550 PATIENTS PTT WAS OBTAINED BY V GROOVE CUTTER.
[2020-09-30 07:48] LABS: Glucose, Whole Blood 166 mg/dL (60-115)
[2020-09-30 08:16] LABS: Anion Gap 18 (12-20); Blood Urea Nitrogen 43 mg/dL (9-16); Carbon Dioxide 18 mmol/L (22-29); Chloride 110 mmol/L (96-108); Creatinine Clr Calc Pharmacy 17.8; Estimated Glomerular Filt Rate 13; Glucose Random 156 mg/dL (60-115); Potassium 4.5 mmol/l (3.3-5.1); Sodium 141 mmol/L (135-145)
[2020-09-30 08:37] LABS: Calcium 8.2 mg/dL (8.4-10.2)
[2020-09-30] MEDS: Tamsulosin HCL 0.4 MG CAPSULE PO (09:04)
[2020-09-30] MEDS: Aspirin Enteric Coated 81 MG TABLET.DR PO (09:04)
[2020-09-30] MEDS: oxyCODONE HCl Immed Release 5 MG TABLET PO ×2 (09:04→17:42)
[2020-09-30 09:07] LABS: Basophils Absolute Auto 0.1 X10*3/uL (0.0-0.2); Basophils Percent Auto 0.8 % (0-2); Eosinophils Absolute Auto 0.2 X10*3/uL (0.0-0.4); Eosinophils Percent Auto 2.1 % (0-4); Hematocrit 24.7 % (42-52); Hemoglobin 7.6 g/dl (14.0-18.0); Imm Gran Abs Auto 0.13 X10*3/uL (0.00-0.03); Imm Gran Pct Auto 1.4 % (0.0-0.4); Lymphocytes Absolute Auto 1.7 X10*3/uL (1.2-4.9); Lymphocytes Percent Auto 18.4 % (20-40); MANUAL DIFF FLAG SCAN; Mean Corpuscular HGB Conc 30.8 g/dl (31.0-36.0); Mean Corpuscular Hemoglobin 29.9 pg (27.0-33.0); Mean Corpuscular Volume 97.2 fL (80-98); Mean Platelet Volume 10.4 fL (9.4-12.4); Monocytes Absolute Auto 0.6 X10*3/uL (0.1-1.2); Monocytes Percent Auto 6.5 % (2-11); Neutrophils Absolute Auto 6.5 X10*3/uL (2.0-8.3); Neutrophils Percent Auto 70.8 % (45-73); Platelet Count 474 X10*3/uL (160-400); Red Blood Count 2.54 X10*6/uL (4.60-5.80); Red Cell Distribution Width 16.4 % (11.0-16.0); SCAN SMEAR FLAG 1; White Blood Count 9.1 X10*3/uL (4.8-10.8)
[2020-09-30] MEDS: 0.9 % Sodium Chloride Flush 3 ML SYRINGE IVFLUSH (09:07)
[2020-09-30] MEDS: allopurinoL 300 MG TABLET PO (09:08)
[2020-09-30] MEDS: Ferrous Sulfate 324 MG TABLET.DR PO ×2 (09:08→20:45)
[2020-09-30] MEDS: Clopidogrel Bisulfate 75 MG TABLET PO (09:08)
[2020-09-30] MEDS: Cholecalciferol (Vitamin D3) 25 MCG TABLET 50 MCG PO (09:08)
[2020-09-30] MEDS: Folic Acid 1 MG TABLET PO (09:08)
[2020-09-30] MEDS: Atorvastatin Calcium 20 MG TABLET PO (09:09)
[2020-09-30 09:13] LABS: PTT Heparin Drip 38.6 SEC (53-77.9)
[2020-09-30 09:38] LABS: SLIDE REVIEW VERIFIED
[2020-09-30] MEDS: Heparin Sodium,Porcine 5,000 UNIT/ML VIAL IVPUSH (10:20)
--- NOTE | 2020-09-30 10:22 | HO.PM.IMPN ---
Subjective Subjective Date of Service: 09/30/20 Interval History: no chest pain Cardiovascular Cardiovascular: Reports no additional cardiovascular complaints Respiratory Respiratory: Reports no additional respiratory complaints Physical Exam Vital Signs: Vital Signs: Last Vital Signs Temp 96.3 F L 09/30/20 07:14 Pulse 110 H 09/30/20 07:14 Resp 20 09/30/20 07:14 BP 165/72 H 09/30/20 07:14 Pulse Ox 99 09/30/20 07:14 Body Mass Index 34.8 General: AO X 3, no acute distress Resp: CTA bilateral CVS: S1,S2,RRR GI: soft, non tender, non distended Neuro: motor grossly intact Psych: appropriate affect Objective Data Current Medications Generic Name Dose Route Start Last Admin Trade Name Flavioq PRN Reason Stop Dose Admin Allopurinol 300 mg 09/29/20 09:00 09/30/20 09:08 Allopurinol 300 Mg Tablet PO 300 mg DAILY CHIKI Administration Aspirin 81 mg 09/29/20 09:00 09/30/20 09:04 Aspirin Enteric Coated 81 Mg Tablet. PO 81 mg DAILY CHIKI Administration Atorvastatin Calcium 20 mg 09/29/20 09:00 09/30/20 09:09 Atorvastatin Calcium 20 Mg Tablet PO 20 mg DAILY CHIKI Administration Clopidogrel Bisulfate 75 mg 09/30/20 09:00 09/30/20 09:08 Clopidogrel Bisulfate 75 Mg Tablet PO 75 mg DAILY CHIKI Administration Colchicine 1.2 mg 09/29/20 18:45 Colchicine 0.6 Mg Tablet PO DAILY PRN gout Docusate Sodium 100 mg 09/28/20 23:57 Docusate Sodium 100 Mg Capsule PO DAILY PRN Constipation Ferrous Sulfate 324 mg 09/29/20 09:00 09/30/20 09:08 Ferrous Sulfate 324 Mg Tablet. PO 324 mg BID CHIKI Administration Folic Acid 1 mg 09/29/20 09:00 09/30/20 09:08 Folic Acid 1 Mg Tablet PO 1 mg DAILY CHIKI Administration Heparin Sodium (Porcine) 0 unit 09/30/20 10:02 Heparin Sodium,Porcine 5,000 Unit/Ml Vial IVPUSH BOLUS PRN HEPARINPR8 Protocol Heparin Sodium/Sodium Chloride 25,000 unit in 250 mls @ 0 mls/hr 09/28/20 22:00 09/30/20 03:16 IVCONT 8.34 units/kg/hr .Q0M CHIKI 8.92 mls/hr Administration Protocol Per Protocol Ceftriaxone Sodium 1 gm/ 50 mls @ 100 mls/hr 09/29/20 06:00 09/30/20 06:19 Sodium Chloride IV Infused Q24H CHIKI Infusion Oxycodone HCl 5 mg 09/29/20 18:43 09/30/20 09:04 Oxycodone Hcl Immed Release 5 Mg Tablet PO 5 mg BID PRN Administration Pain (Scale Score 7-10) Pharmacy Consult 1 each 09/28/20 15:32 Consult Rx Perform Med Rec MISCELLANE ONCE PRN Consult order Sodium Chloride 3 ml 09/29/20 08:00 09/30/20 09:07 0.9 % Sodium Chloride Flush 3 Ml Syringe IVFLUSH 3 ml QSHIFT CHIKI Administration Tamsulosin HCl 0.4 mg 09/29/20 09:00 09/30/20 09:04 Tamsulosin Hcl 0.4 Mg Capsule PO 0.4 mg DAILY CHIKI Administration Vitamin D 50 mcg 09/29/20 09:00 09/30/20 09:08 Cholecalciferol (Vitamin D3) 25 Mcg Tablet PO 50 mcg DAILY CHIKI Administration Labs CBC & Chem 7: 09/30/20 08:37 09/30/20 06:01 Microbiology Microbiology Results: Microbiology 09/28/20 16:21 Blood - Venous Blood Culture - Preliminary No growth after 24 hours. 09/28/20 16:21 Blood - Venous Blood Culture - Preliminary No growth after 24 hours. 09/28/20 19:40 Urine clean catch - Clean Catch Midstream Urine Culture - Final Assessment and Plan (1) Non-ST elevated myocardial infarction (non-STEMI): Status: Acute (2) Acute UTI: Status: Acute (3) Acute renal failure superimposed on chronic kidney disease: Status: Acute (4) Anemia: Status: Acute (5) Diabetes 1.5, managed as type 1: Status: Acute (6) High cholesterol: Status: Acute (7) Gout: Status: Acute (8) HTN (hypertension): Status: Acute (9) BPH (benign prostatic hyperplasia): Status: Acute (10) Constipation: Status: Acute Assessment and Plan: 74M presented with difficulty urinating VIDYA/CKD V improved, check for urinary retention, monitor UTI ceftriaxone, follow-up cultures NSTMEI 48hr heparin DM insulin QT prolongation monitor, mag replaced, hold qt prolonging meds
[2020-09-30 11:32] LABS: Glucose, Whole Blood 180 mg/dL (60-115)
--- NOTE | 2020-09-30 15:18 | PC.NURSE ---
lab unable to draw ptt hd when ordered. multiple attempts made. result in at 0837 low at 38.6. heparin unavailable in xis, pharmacy contacted to change heparin orders and made available in pyxis. bolus of 4,280 units given and rate increased by 2 units per kg per hour. next ptthd put in for 6 hours.
[2020-09-30 16:31] LABS: PTT Heparin Drip 68.2 SEC (53-77.9)
--- NOTE | 2020-09-30 17:14 | PM.PNNEP ---
Subjective Subjective Interval history: no chest pain, voiding better but still with BPH symptoms Physical Exam Vital Signs: Vital Signs: Last Vital Signs Temp 98.7 F 09/30/20 15:57 Pulse 106 H 09/30/20 15:57 Resp 18 09/30/20 15:57 BP 153/77 H 09/30/20 15:57 Pulse Ox 99 09/30/20 15:57 Body Mass Index 34.8 Appearance: Alert. Oriented X3. No acute distress. Eyes: Pupils equal, round and reactive to light. ENT: Pharynx normal. Neck: Normal inspection. Neck supple. CVS: Normal heart rate and rhythm. Pulses normal. Respiratory: No respiratory distress. Breath sounds normal. Abdomen: Soft and nontender. Skin: Skin warm and dry. Normal skin color. Normal skin turgor. Extremities: No lower extremity edema. No calf ttp Neuro: Oriented X 3. No motor deficit. No sensory deficit. Const: General: cooperative and comfortable Orientation/consciousness: patient oriented x3 HENMT: Head: Yes normal to inspection Eyes: General: appearance normal, both eyes and all related structures Neck: Neck: Yes normal visual inspection Chest: Chest palpation & inspection: normal inspection of the chest Resp: Effort & Inspection: normal respiratory effort Cardio: Jugular venous distension: no JVD Rate: regular rate Rhythm: regular rhythm Heart sounds: S1 normal heart sound present and S2 normal heart sound present GI: Inspection: Yes normal to inspection Skin: General skin exam: no rashes or lesions noted Neuro: General: patient oriented x3 Assessment & Plan Assessment and plan (1) Non-ST elevated myocardial infarction (non-STEMI): Status: Acute Assessment and Plan: Initial troponin of 2500, EKG showing prolonged QT and T wave inversion in anterolateral leads. 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 Baseline Hgb of 7.7 monitor for now continue with iron home dose (5) Diabetes 1.5, managed as type 1: Status: Acute Assessment and Plan: Insulin regimen as ordered (6) High cholesterol: Status: Acute Assessment and Plan: continue with statin home dose (7) Gout: Status: Acute Assessment and Plan: continue with allopurinol home dose continue with colchicine home dose (8) HTN (hypertension): Status: Acute Assessment and Plan: Hold all BP meds given borderline hypotension will monitor for now. SIRS criteria negative for sepsis (9) BPH (benign prostatic hyperplasia): Status: Acute Assessment and Plan: continue with flomax home dose (10) Constipation: Status: Acute Assessment and Plan: 1. NAHID: most c/w OBs uropathy from BENTLEY..on flomax doing better but need to r/o cont Urinary retention..unable to pass melvin Scr decr is a good sign but still not back to bsl 2. 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 Anemia: will investigate IV Fe and procrit 4. DM 5. CAD ? 6. MBD of CKD 7. BPH and ques BENTLEY..needs urol evl REC: track UOP/renal func; renal U/S look for hydro and PVR; bladder scan to look for Urinary retention; start procrit; check iron stores ( I will order both) protect LUE for future AVF; avoid NToxins; urol eval of BENTLEY; no indicatin for HD at this time but supsect he will need to be on dialysis in next 6-12 monhts Time Spent With Patient Time: Total time spent is greater than 50% in coordination of care (as documented) at patient's floor/unit and/or counseling patient:
[2020-09-30 17:33] LABS: Glucose, Whole Blood 234 mg/dL (60-115)
[2020-09-30 17:44] LABS: Iron 43 mcg/dL (45-160); Percent Iron Saturation 23 % (15-50); Total Iron Binding Capacity 189 mcg/dL (228-428); Unsaturated Iron Binding 146 ug/dL
[2020-09-30 18:04] LABS: Ferritin 983 ng/mL (20-250)
[2020-09-30 20:58] LABS: Glucose, Whole Blood 244 mg/dL (60-115)
[2020-09-30 22:37] LABS: PTT Heparin Drip 64.4 SEC (53-77.9)
[2020-10-01] VITALS (8 sets, daily range): BP systolic 116–188; BP diastolic 49–79; PULSE 80–115; RESP 18; TEMP 36.8–37.4; O2SAT 97–99; BMI 34.8
--- NOTE | 2020-10-01 01:39 | CA_ITS ---
Transthoracic Echocardiogram Patient (Last, First, Middle): Patrick Varela M Gender: Male Date of : 1945 Age: 74 Procedure Date: 10/01/2020 Procedure Type: Transthoracic Echocardiogram Location: [facility] Height: 175.26 cm Weight: 106.6 kg BSA: 2.21 m2 Heart Rate: bpm BP: 188 / 78 mmHg Internet Network Specialist: DSG Referring MD: Pancho Grimaldo MD Symptoms: NSTEMI Conclusions: - 1. 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 Left Ventricle The left ventricular systolic function is moderately decreased. The visually estimated ejection fraction is between 35-40%. Diastolic function is indeterminate on the basis of available data. All the segments from apex to mid ventricle are hypokinesis with sparing of the base suggestive of stress induced cardiomyopathy. Wall Motion Rest Echo Findings The entire apex, the mid anterior, mid inferior, mid inferoseptal, mid anteroseptal, and mid inferolateral segments are akinetic. All other scored wall segments showed normal motion. Prior Study Comparison Significant changes compared to prior study dated: 07/12/2020. LV systolic dysfunction is present with multiple regional wall motion abnormalities Measurements 2D Systolic Function EF 4C: 36.70 >55% EF 2C: 38.70 >55% EF BiP: 40.20 >55% Mitral Valve MV Pk E: 1.39 MV PK A: 0.88 MV Decel Time: 77.00 E/A: 1.60 E'Lateral: 17.00 E'Medial: 18.30 E/E' Med: 7.60 E/E' Lat: 8.20 PHT: 23.00 MVA PHT: 9.57 Decel [place]: 17.90 Diastolic Function MV Pk E: 1.39 MV Pk A: 0.88 E/A: 1.60 E'Medial: 18.30 E/E' Med: 7.60 E' Laterial: 17.00 E/E' Lat: 8.20 Updated in Other Vendor System with Status of Final Lucius Desouza MD electronically signed on 10/01/2020 12:19:10 PM with status of Final
--- NOTE | 2020-10-01 02:10 | PC.NURSE ---
P. HTN/TACHYCARDIA I. DR PAL CALLED NOTIFIED OF HOME B/P MEDS D/C ON ADMISSION I. PT ON CLONIDINE/METOPROLOL/DILTIAZEM I. SBP 150-160 MMHG I. HR 115-120 BPM I. ANXIOUS WORRIED ABOUT
[2020-10-01] MEDS: hydrOXYzine HCL 25 MG TABLET PO (02:26)
[2020-10-01] MEDS: Heparin Sodium,Porcine/1/2NS 25,000 UNIT/250 ML IV.SOLN 11.06 UNIT IVCONT (02:27)
[2020-10-01] MEDS: oxyCODONE HCl Immed Release 5 MG TABLET PO ×2 (02:31→10:46)
[2020-10-01 04:24] LABS: Basophils Absolute Auto 0.1 X10*3/uL (0.0-0.2); Basophils Percent Auto 0.7 % (0-2); Eosinophils Absolute Auto 0.3 X10*3/uL (0.0-0.4); Eosinophils Percent Auto 3.1 % (0-4); Hematocrit 26.3 % (42-52); Hemoglobin 8.1 g/dl (14.0-18.0); Imm Gran Abs Auto 0.25 X10*3/uL (0.00-0.03); Imm Gran Pct Auto 2.8 % (0.0-0.4); Lymphocytes Absolute Auto 1.9 X10*3/uL (1.2-4.9); MANUAL DIFF FLAG SCAN; Mean Corpuscular HGB Conc 30.8 g/dl (31.0-36.0); Mean Corpuscular Hemoglobin 29.5 pg (27.0-33.0); Mean Corpuscular Volume 95.6 fL (80-98); Mean Platelet Volume 10.3 fL (9.4-12.4); Monocytes Absolute Auto 0.7 X10*3/uL (0.1-1.2); Monocytes Percent Auto 7.9 % (2-11); Neutrophils Absolute Auto 5.8 X10*3/uL (2.0-8.3); Neutrophils Percent Auto 64.5 % (45-73); Platelet Count 535 X10*3/uL (160-400); Red Blood Count 2.75 X10*6/uL (4.60-5.80); Red Cell Distribution Width 16.4 % (11.0-16.0); SCAN SMEAR FLAG 1
[2020-10-01 04:31] LABS: PTT Heparin Drip 49.3 SEC (53-77.9)
[2020-10-01 04:43] LABS: SLIDE REVIEW VERIFIED
[2020-10-01 04:51] LABS: Anion Gap 19 (12-20); Blood Urea Nitrogen 36 mg/dL (9-16); Calcium 8.2 mg/dL (8.4-10.2); Carbon Dioxide 18 mmol/L (22-29); Chloride 105 mmol/L (96-108); Creatinine Clr Calc Pharmacy 20.4; Estimated Glomerular Filt Rate 15; Glucose Fasting 255 mg/dL (60-99); Potassium 4.6 mmol/l (3.3-5.1); Sodium 137 mmol/L (135-145)
[2020-10-01] MEDS: cefTRIAXone sodium 1 GM in 0.9 % Sodium Chloride 50 ML IV (06:01)
[2020-10-01] MEDS: 0.9 % Sodium Chloride Flush 3 ML SYRINGE IVFLUSH ×4 (06:02→21:23)
[2020-10-01] MEDS: Heparin Sodium,Porcine 5,000 UNIT/ML VIAL IVPUSH (06:05)
[2020-10-01 07:56] LABS: Glucose, Whole Blood 218 mg/dL (60-115)
--- NOTE | 2020-10-01 10:12 | HO.PM.IMPN ---
Subjective Subjective Interval History: no chest pain, voiding better but still with BPH symptoms Physical Exam Vital Signs: Vital Signs: Last Vital Signs Temp 98.9 F 10/01/20 07:48 Pulse 115 H 10/01/20 07:48 Resp 18 10/01/20 07:48 BP 172/79 H 10/01/20 07:48 Pulse Ox 98 10/01/20 07:48 Body Mass Index 34.8 General: AO X 3, no acute distress Resp: CTA bilateral CVS: S1,S2,RRR GI: soft, non tender, non distended Neuro: motor grossly intact Psych: appropriate affect Objective Data Current Medications Generic Name Dose Route Start Last Admin Trade Name Freq PRN Reason Stop Dose Admin Allopurinol 300 mg 09/29/20 09:00 09/30/20 09:08 Allopurinol 300 Mg Tablet PO 300 mg DAILY CHIKI Administration Aspirin 81 mg 09/29/20 09:00 09/30/20 09:04 Aspirin Enteric Coated 81 Mg Tablet. PO 81 mg DAILY CHIKI Administration Atorvastatin Calcium 20 mg 09/29/20 09:00 09/30/20 09:09 Atorvastatin Calcium 20 Mg Tablet PO 20 mg DAILY CHIKI Administration Clopidogrel Bisulfate 75 mg 09/30/20 09:00 09/30/20 09:08 Clopidogrel Bisulfate 75 Mg Tablet PO 75 mg DAILY CHIKI Administration Colchicine 1.2 mg 09/29/20 18:45 Colchicine 0.6 Mg Tablet PO DAILY PRN gout Diltiazem HCl 360 mg 10/01/20 10:05 Diltiazem Hcl Cd 180 Mg Cap.Er.24h PO DAILY [facility] Protocol Docusate Sodium 100 mg 09/28/20 23:57 Docusate Sodium 100 Mg Capsule PO DAILY PRN Constipation Ferrous Sulfate 324 mg 09/29/20 09:00 09/30/20 20:45 Ferrous Sulfate 324 Mg Tablet. PO 324 mg BID CHIKI Administration Folic Acid 1 mg 09/29/20 09:00 09/30/20 09:08 Folic Acid 1 Mg Tablet PO 1 mg DAILY CHIKI Administration Hydroxyzine HCl 25 mg 10/01/20 02:12 10/01/20 02:26 Hydroxyzine Hcl 25 Mg Tablet PO 25 mg Q6H PRN Administration anxiety/restlessness Ceftriaxone Sodium 1 gm/ 50 mls @ 100 mls/hr 09/29/20 06:00 10/01/20 07:32 Sodium Chloride IV Infused Q24H CHIKI Infusion Metoprolol Tartrate 50 mg 10/01/20 10:05 Metoprolol Tartrate 50 Mg Tablet PO BID [facility] Protocol Oxycodone HCl 5 mg 09/29/20 18:43 10/01/20 02:31 Oxycodone Hcl Immed Release 5 Mg Tablet PO 5 mg BID PRN Administration Pain (Scale Score 7-10) Pharmacy Consult 1 each 09/28/20 15:32 Consult Rx Perform Med Rec MISCELLANE ONCE PRN Consult order Sodium Chloride 3 ml 09/29/20 08:00 10/01/20 06:02 0.9 % Sodium Chloride Flush 3 Ml Syringe IVFLUSH 3 ml QSHIFT [facility] Administration Tamsulosin HCl 0.4 mg 09/29/20 09:00 09/30/20 09:04 Tamsulosin Hcl 0.4 Mg Capsule PO 0.4 mg DAILY CHIKI Administration Trazodone HCl 25 mg 10/01/20 02:12 Trazodone Hcl 25 Mg Halftab PO BEDTIME PRN insomnia Vitamin D 50 mcg 09/29/20 09:00 09/30/20 09:08 Cholecalciferol (Vitamin D3) 25 Mcg Tablet PO 50 mcg DAILY CHIKI Administration Labs CBC & Chem 7: 10/01/20 04:03 10/01/20 04:03 Microbiology Microbiology Results: Microbiology 09/28/20 16:21 Blood - Venous Blood Culture - Preliminary No growth after 48 hours. 09/28/20 16:21 Blood - Venous Blood Culture - Preliminary No growth after 48 hours. 09/28/20 19:40 Urine clean catch - Clean Catch Midstream Urine Culture - Final Assessment and Plan (1) Non-ST elevated myocardial infarction (non-STEMI): Status: Acute (2) Acute UTI: Status: Acute (3) Acute renal failure superimposed on chronic kidney disease: Status: Acute (4) Anemia: Status: Acute (5) Diabetes 1.5, managed as type 1: Status: Acute (6) High cholesterol: Status: Acute (7) Gout: Status: Acute (8) HTN (hypertension): Status: Acute (9) BPH (benign prostatic hyperplasia): Status: Acute (10) Constipation: Status: Acute Assessment and Plan: 74M presented with difficulty urinating VIDYA/CKD V continues to improve, monitor, nephro following BPH flomax, outpatient UTI ceftriaxone day 3, cultures negative NSTEMI completed 48hrs of heparin continue dual antiplatelet and statin likely outpatient stress test HTN BP meds initially held for relative hypotension restart metoporlol tartate 50mg bid, cardizem cd 360mg daily DM insulin QT prolongation monitor, mag replaced
[2020-10-01] MEDS: Cholecalciferol (Vitamin D3) 25 MCG TABLET 50 MCG PO (10:38)
[2020-10-01] MEDS: Aspirin Enteric Coated 81 MG TABLET.DR PO (10:39)
[2020-10-01] MEDS: allopurinoL 300 MG TABLET PO (10:39)
[2020-10-01] MEDS: Clopidogrel Bisulfate 75 MG TABLET PO (10:41)
[2020-10-01] MEDS: Metoprolol Tartrate 50 MG TABLET PO (10:41)
[2020-10-01] MEDS: Folic Acid 1 MG TABLET PO (10:41)
[2020-10-01] MEDS: Ferrous Sulfate 324 MG TABLET.DR PO ×2 (10:41→21:22)
[2020-10-01] MEDS: Atorvastatin Calcium 20 MG TABLET PO (10:41)
[2020-10-01] MEDS: Tamsulosin HCL 0.4 MG CAPSULE PO (10:41)
[2020-10-01] MEDS: dilTIAZem HCL CD 180 MG CAP.ER.24H 360 MG PO (10:42)
--- NOTE | 2020-10-01 11:18 | PM.PNNEP ---
Subjective Subjective Interval history: no chest pain, voiding better but still with BPH symptoms Physical Exam Vital Signs: Vital Signs: Last Vital Signs Temp 98.9 F 10/01/20 07:48 Pulse 115 H 10/01/20 10:42 Resp 18 10/01/20 07:48 BP 172/79 H 10/01/20 10:42 Pulse Ox 98 10/01/20 07:48 Body Mass Index 34.8 Appearance: Alert. Oriented X3. No acute distress. Eyes: Pupils equal, round and reactive to light. ENT: Pharynx normal. Neck: Normal inspection. Neck supple. CVS: Normal heart rate and rhythm. Pulses normal. Respiratory: No respiratory distress. Breath sounds normal. Abdomen: Soft and nontender. Skin: Skin warm and dry. Normal skin color. Normal skin turgor. Extremities: No lower extremity edema. No calf ttp Neuro: Oriented X 3. No motor deficit. No sensory deficit. Const: General: cooperative and comfortable Orientation/consciousness: patient oriented x3 HENMT: Head: Yes normal to inspection Eyes: General: appearance normal, both eyes and all related structures Neck: Neck: Yes normal visual inspection Chest: Chest palpation & inspection: normal inspection of the chest Resp: Effort & Inspection: normal respiratory effort Cardio: Jugular venous distension: no JVD Rate: regular rate Rhythm: regular rhythm Heart sounds: S1 normal heart sound present and S2 normal heart sound present GI: Inspection: Yes normal to inspection Skin: General skin exam: no rashes or lesions noted Neuro: General: patient oriented x3 Assessment & Plan Assessment and plan (1) Non-ST elevated myocardial infarction (non-STEMI): Status: Acute Assessment and Plan: Initial troponin of 2500, EKG showing prolonged QT and T wave inversion in anterolateral leads. 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 Baseline Hgb of 7.7 monitor for now continue with iron home dose (5) Diabetes 1.5, managed as type 1: Status: Acute Assessment and Plan: Insulin regimen as ordered (6) High cholesterol: Status: Acute Assessment and Plan: continue with statin home dose (7) Gout: Status: Acute Assessment and Plan: continue with allopurinol home dose continue with colchicine home dose (8) HTN (hypertension): Status: Acute Assessment and Plan: Hold all BP meds given borderline hypotension will monitor for now. SIRS criteria negative for sepsis (9) BPH (benign prostatic hyperplasia): Status: Acute Assessment and Plan: continue with flomax home dose (10) Constipation: Status: Acute Assessment and Plan: 1. NAHID: most c/w OBs uropathy from BENTLEY and dehydration....on flomax doing better but need to r/o cont Urinary retention..unable to pass melvin Scr decr is a good sign but still not back to bsl 2. 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 Anemia: will investigate IV Fe and procrit..Fe sat ok so will sttart procrit 4. DM 5. CAD ? need for CCath..card eval 6. MBD of CKD 7. BPH and ques BENTLEY..needs urol evl REC: track UOP/renal func; renal U/S look for hydro and PVR; bladder scan to look for Urinary retention; start procrit protect LUE for future AVF; avoid NToxins; urol eval of BENTLEY; no indicatin for HD at this time but supsect he will need to be on dialysis in next 6-12 monhts Time Spent With Patient Time: Total time spent is greater than 50% in coordination of care (as documented) at patient's floor/unit and/or counseling patient:
[2020-10-01 11:35] LABS: Glucose, Whole Blood 291 mg/dL (60-115)
--- NOTE | 2020-10-01 12:19 | PM.PNCARD ---
Subjective Subjective Interval history: no chest pain, voiding better but still with BPH symptoms Review of Systems Constitutional: Reports no additional constitutional complaints Cardiovascular: Denies chest pain, Denies chest pain at rest, Denies chest pain with activity, Denies leg edema, Denies radiating jaw, neck or arm pain and Denies dyspnea on exertion Respiratory: Reports no additional respiratory complaints and Denies dyspnea on exertion Gastrointestinal: Reports no additional gastrointestinal complaints Reports system reviewed and no additional complaints, except as documented Physical Exam Vital Signs: Last Vital Signs Temp 99.3 F 10/01/20 11:21 Pulse 96 10/01/20 11:21 Resp 18 10/01/20 11:21 BP 169/74 H 10/01/20 11:21 Pulse Ox 98 10/01/20 11:21 Body Mass Index 34.8 Const General: cooperative, comfortable, no acute distress, alert and awake Nutritional Appearance: obese Orientation/consciousness: patient oriented x3 HENMT Head: Yes normocephalic and Yes atraumatic Neck Neck: Yes full ROM, Yes trachea midline and Yes no JVD Chest Chest palpation & inspection: normal inspection of the chest Resp Effort & Inspection: normal respiratory effort Auscultation: clear to auscultation bilaterally, no crackles and no rales Cardio Rate: regular rate Rhythm: regular rhythm Heart sounds: S1 normal heart sound present, S2 normal heart sound present and Other heart sounds present ( S4 present) GI Auscultation: normal bowel sounds Neuro General: patient oriented x3 Extrem General: Yes no clubbing, cyanosis or edema Psych Appearance: grossly normal Results Labs and Meds Result diagrams: 10/01/20 04:03 10/01/20 04:03 Lab results: Laboratory Results - last 24 hr 09/30/20 09/30/20 09/30/20 06:01 16:15 17:29 WBC RBC Hgb Hct MCV MCH MCHC RDW Plt Count MPV Immature Gran % (Auto) Neut % (Auto) Lymph % (Auto) [place] % (Auto) Eos % (Auto) Baso % (Auto) Lymph # (Auto) [place] # (Auto) Eos # (Auto) Baso # (Auto) Abs Immat Gran (auto) Absolute Neuts (auto) Absolute Nucleated RBC Nucleated RBC % (auto) Smear Tech's Comments PTT (Heparin Protocol) 68.2 D Sodium Potassium Chloride Carbon Dioxide Anion Gap BUN Creatinine Estim Creat Clear Calc Estimated GFR POC Glucose 234 H Fasting Glucose Calcium Iron 43 L TIBC 189 L % Saturation 23 Unsat Iron Binding 146 Ferritin 983 H 09/30/20 09/30/20 10/01/20 20:52 22:18 04:03 WBC RBC Hgb Hct MCV MCH MCHC RDW Plt Count MPV Immature Gran % (Auto) Neut % (Auto) Lymph % (Auto) [place] % (Auto) Eos % (Auto) Baso % (Auto) Lymph # (Auto) [place] # (Auto) Eos # (Auto) Baso # (Auto) Abs Immat Gran (auto) Absolute Neuts (auto) Absolute Nucleated RBC Nucleated RBC % (auto) Smear Tech's Comments PTT (Heparin Protocol) 64.4 49.3 L D Sodium Potassium Chloride Carbon Dioxide Anion Gap BUN Creatinine Estim Creat Clear Calc Estimated GFR POC Glucose 244 H Fasting Glucose Calcium Iron TIBC % Saturation Unsat Iron Binding Ferritin 10/01/20 10/01/20 10/01/20 04:03 04:03 07:51 WBC 9.0 RBC 2.75 L Hgb 8.1 L Hct 26.3 L MCV 95.6 MCH 29.5 MCHC 30.8 L RDW 16.4 H Plt Count 535 H MPV 10.3 Immature Gran % (Auto) 2.8 H Neut % (Auto) 64.5 Lymph % (Auto) 21.0 [place] % (Auto) 7.9 Eos % (Auto) 3.1 Baso % (Auto) 0.7 Lymph # (Auto) 1.9 [place] # (Auto) 0.7 Eos # (Auto) 0.3 Baso # (Auto) 0.1 Abs Immat Gran (auto) 0.25 H Absolute Neuts (auto) 5.8 Absolute Nucleated RBC 0.000 Nucleated RBC % (auto) 0.0 Smear Tech's Comments VERIFIED PTT (Heparin Protocol) Sodium 137 Potassium 4.6 Chloride 105 Carbon Dioxide 18 L Anion Gap 19 BUN 36 H Creatinine 3.93 H Estim Creat Clear Calc 20.4 Estimated GFR 15 POC Glucose 218 H Fasting Glucose 255 H Calcium 8.2 L Iron TIBC % Saturation Unsat Iron Binding Ferritin 10/01/20 11:28 WBC RBC Hgb Hct MCV MCH MCHC RDW Plt Count MPV Immature Gran % (Auto) Neut % (Auto) Lymph % (Auto) [place] % (Auto) Eos % (Auto) Baso % (Auto) Lymph # (Auto) [place] # (Auto) Eos # (Auto) Baso # (Auto) Abs Immat Gran (auto) Absolute Neuts (auto) Absolute Nucleated RBC Nucleated RBC % (auto) Smear Tech's Comments PTT (Heparin Protocol) Sodium Potassium Chloride Carbon Dioxide Anion Gap BUN Creatinine Estim Creat Clear Calc Estimated GFR POC Glucose 291 H Fasting Glucose Calcium Iron TIBC % Saturation Unsat Iron Binding Ferritin Progress Note: A&P Assessment and plan (1) Non-ST elevated myocardial infarction (non-STEMI): Status: Acute Assessment and Plan: evidence of secondary acute coronary syndrome with marked T-wave changes and elevated troponins. Underlying high likelihood of coronary disease given his multiple risk factors. Echocardiogram shows new LV systolic dysfunction with multiple regional wall motion abnormality which could also represent stress-induced cardiomyopathy. However this is a diagnosis of exclusion. Will need cardiac catheterization to further determine. Discussed with patient about cardiac catheterization need, he wants to think about it and currently declining it. He is worried about contrast induced nephropathy which is high likelihood. Continue aggressive medical therapy. Continue to maximize beta-candace therapy. Hold off on Cardizem therapy given his new LV systolic dysfunction. Consider adding calcium channel candace to his regimen such as Norvasc. Can resume low-dose clonidine therapy. Prognosis is guarded. This was discussed with the patient. However he is currently focused only on his symptoms. If patient is agreeable will need to be transferred to [facility] for cardiac catheterization. (2) HTN (hypertension): Status: Acute (3) Acute renal failure superimposed on chronic kidney disease: Status: Acute Fall Risk Details Current Medications: Current Medications Generic Name Dose Route Start Last Admin Trade Name Freq PRN Reason Stop Dose Admin Allopurinol 300 mg 09/29/20 09:00 10/01/20 10:39 Allopurinol 300 Mg Tablet PO 300 mg DAILY CHIKI Administration Aspirin 81 mg 09/29/20 09:00 10/01/20 10:39 Aspirin Enteric Coated 81 Mg Tablet. PO 81 mg DAILY CHIKI Administration Atorvastatin Calcium 20 mg 09/29/20 09:00 10/01/20 10:41 Atorvastatin Calcium 20 Mg Tablet PO 20 mg DAILY CHIKI Administration Clonidine HCl 0.1 mg 10/01/20 21:00 Clonidine Hcl 0.1 Mg Tablet PO BID CHIKI Protocol Clopidogrel Bisulfate 75 mg 09/30/20 09:00 10/01/20 10:41 Clopidogrel Bisulfate 75 Mg Tablet PO 75 mg DAILY CHIKI Administration Colchicine 1.2 mg 09/29/20 18:45 Colchicine 0.6 Mg Tablet PO DAILY PRN gout Docusate Sodium 100 mg 09/28/20 23:57 Docusate Sodium 100 Mg Capsule PO DAILY PRN Constipation Ferrous Sulfate 324 mg 09/29/20 09:00 10/01/20 10:41 Ferrous Sulfate 324 Mg Tablet.Dr PO 324 mg BID CHIKI Administration Folic Acid 1 mg 09/29/20 09:00 10/01/20 10:41 Folic Acid 1 Mg Tablet PO 1 mg DAILY CHIKI Administration Hydroxyzine HCl 25 mg 10/01/20 02:12 10/01/20 02:26 Hydroxyzine Hcl 25 Mg Tablet PO 25 mg Q6H PRN Administration anxiety/restlessness Ceftriaxone Sodium 1 gm/ 50 mls @ 100 mls/hr 09/29/20 06:00 10/01/20 07:32 Sodium Chloride IV Infused Q24H COUNT INCLUDES THE [facility] Infusion Metoprolol Tartrate 100 mg 10/01/20 11:27 Metoprolol Tartrate 50 Mg Tablet PO BID COUNT INCLUDES THE [facility] Protocol Oxycodone HCl 5 mg 09/29/20 18:43 10/01/20 10:46 Oxycodone Hcl Immed Release 5 Mg Tablet PO 5 mg BID PRN Administration Pain (Scale Score 7-10) Pharmacy Consult 1 each 09/28/20 15:32 Consult Rx Perform Med Rec MISCELLANE ONCE PRN Consult order Sodium Chloride 3 ml 09/29/20 08:00 10/01/20 10:43 0.9 % Sodium Chloride Flush 3 Ml Syringe IVFLUSH 3 ml QSHIFT COUNT INCLUDES THE [facility] Administration Tamsulosin HCl 0.4 mg 09/29/20 09:00 10/01/20 10:41 Tamsulosin Hcl 0.4 Mg Capsule PO 0.4 mg DAILY CHIKI Administration Trazodone HCl 25 mg 10/01/20 02:12 Trazodone Hcl 25 Mg Halftab PO BEDTIME PRN insomnia Vitamin D 50 mcg 09/29/20 09:00 10/01/20 10:38 Cholecalciferol (Vitamin D3) 25 Mcg Tablet PO 50 mcg DAILY CHIKI Administration Time Spent With Patient Time: Total time spent is greater than 50% in coordination of care (as documented) at patient's floor/unit and/or counseling patient: Time with patient: 15 - 24 minutes
--- NOTE | 2020-10-01 12:58 | MHC.CM.PN ---
PER MULTI DIS ROUNDS DC PLAN REM,LULU CARVALHO WITH G/F AND RESUMPTIO N OF HVNS
[2020-10-01 16:03] LABS: Glucose, Whole Blood 335 mg/dL (60-115)
[2020-10-01] MEDS: Insulin Lispro 100 UNIT/ML 3 ML VIAL SUBCUT ×2 (17:15→21:23)
[2020-10-01 20:58] LABS: Glucose, Whole Blood 224 mg/dL (60-115)
[2020-10-01] MEDS: Insulin Glargine,Hum.rec.anlog 100 UNIT/ML 10 ML VIAL 15 UNIT SUBCUT (21:22)
[2020-10-01] MEDS: Metoprolol Tartrate 50 MG TABLET 100 MG PO (21:22)
[2020-10-01] MEDS: cloNIDine HCL 0.1 MG TABLET PO (21:22)
[2020-10-02] VITALS: BP 143/64; PULSE 72; RESP 18; TEMP 36.7; O2SAT 99
[2020-10-02 04:00] VITALS: BP 116/53; PULSE 88; RESP 18; TEMP 37.3; O2SAT 99
[2020-10-02] MEDS: cefTRIAXone sodium 1 GM in 0.9 % Sodium Chloride 50 ML IV (05:07)
[2020-10-02 07:16] VITALS: BP 131/61; PULSE 77; TEMP 37.2; O2SAT 98
[2020-10-02 07:40] LABS: Anion Gap 17 (12-20); Blood Urea Nitrogen 30 mg/dL (9-16); Calcium 7.9 mg/dL (8.4-10.2); Carbon Dioxide 20 mmol/L (22-29); Chloride 108 mmol/L (96-108); Creatinine Clr Calc Pharmacy 22.5; Estimated Glomerular Filt Rate 17; Glucose Fasting 137 mg/dL (60-99); Potassium 4.5 mmol/l (3.3-5.1); Sodium 140 mmol/L (135-145)
[2020-10-02 07:46] LABS: Glucose, Whole Blood 134 mg/dL (60-115)
[2020-10-02 07:49] LABS: Basophils Absolute Auto 0.1 X10*3/uL (0.0-0.2); Basophils Percent Auto 0.6 % (0-2); Eosinophils Absolute Auto 0.3 X10*3/uL (0.0-0.4); Eosinophils Percent Auto 3.6 % (0-4); Hematocrit 25.4 % (42-52); Hemoglobin 7.8 g/dl (14.0-18.0); Imm Gran Abs Auto 0.15 X10*3/uL (0.00-0.03); Imm Gran Pct Auto 1.9 % (0.0-0.4); Lymphocytes Absolute Auto 2.1 X10*3/uL (1.2-4.9); Lymphocytes Percent Auto 26.8 % (20-40); MANUAL DIFF FLAG SCAN; Mean Corpuscular HGB Conc 30.7 g/dl (31.0-36.0); Mean Corpuscular Hemoglobin 30.4 pg (27.0-33.0); Mean Corpuscular Volume 98.8 fL (80-98); Mean Platelet Volume 10.4 fL (9.4-12.4); Monocytes Absolute Auto 0.6 X10*3/uL (0.1-1.2); Neutrophils Absolute Auto 4.6 X10*3/uL (2.0-8.3); Neutrophils Percent Auto 59.1 % (45-73); Platelet Count 526 X10*3/uL (160-400); Red Blood Count 2.57 X10*6/uL (4.60-5.80); Red Cell Distribution Width 16.7 % (11.0-16.0); SCAN SMEAR FLAG 1; White Blood Count 7.7 X10*3/uL (4.8-10.8)
[2020-10-02 08:11] LABS: SLIDE REVIEW VERIFIED
--- NOTE | 2020-10-02 09:06 | P.PNCA_ITS ---
Subjective Subjective Interval history: no chest pain, voiding better but still with BPH symptoms. Echocardiogram yesterday shows decreased LV systolic function with multiple regional wall motion abnormalities which could represent stress-induced cardiomyopathy. Patient has no other cardiac symptoms. Heart rate and blood pressure have settled. No significant arrhythmias noted. Review of Systems Constitutional: Denies no additional constitutional complaints Cardiovascular: Denies chest pain, Denies rapid heart rate and Denies lightheadedness Respiratory: Denies no additional respiratory complaints Gastrointestinal: Denies no additional gastrointestinal complaints Musculoskeletal: Reports no additional musculoskeletal complaints Reports system reviewed and no additional complaints, except as documented Physical Exam Vital Signs: Last Vital Signs Temp 98.9 F 10/02/20 07:16 Pulse 77 10/02/20 07:16 Resp 18 10/02/20 04:00 BP 131/61 10/02/20 07:16 Pulse Ox 98 10/02/20 07:16 Body Mass Index 34.8 Const General: cooperative, comfortable, no acute distress, alert and awake Nutritional Appearance: obese Orientation/consciousness: patient oriented x3 HENMT Head: Yes normal to inspection, Yes normocephalic and Yes atraumatic Neck Neck: Yes no JVD Chest Chest palpation & inspection: normal inspection of the chest Resp Effort & Inspection: normal respiratory effort Auscultation: clear to auscultation bilaterally Cardio Jugular venous distension: no JVD Rate: regular rate Rhythm: regular rhythm Heart sounds: S1 normal heart sound present, S2 normal heart sound present and Other heart sounds present (S4 present) Skin General skin exam: no rashes or lesions noted Neuro General: patient oriented x3 Extrem General: Yes no clubbing, cyanosis or edema Psych Appearance: grossly normal Results Labs and Meds Result diagrams: 10/02/20 05:46 10/02/20 05:46 Lab results: Laboratory Results - last 24 hr 10/01/20 10/01/20 10/01/20 11:28 15:49 20:19 WBC RBC Hgb Hct MCV MCH MCHC RDW Plt Count MPV Immature Gran % (Auto) Neut % (Auto) Lymph % (Auto) [place] % (Auto) Eos % (Auto) Baso % (Auto) Lymph # (Auto) [place] # (Auto) Eos # (Auto) Baso # (Auto) Abs Immat Gran (auto) Absolute Neuts (auto) Absolute Nucleated RBC Nucleated RBC % (auto) Smear Tech's Comments Sodium Potassium Chloride Carbon Dioxide Anion Gap BUN Creatinine Estim Creat Clear Calc Estimated GFR POC Glucose 291 H 335 H 224 H Fasting Glucose Calcium 10/02/20 10/02/20 10/02/20 05:46 05:46 07:18 WBC 7.7 RBC 2.57 L Hgb 7.8 L Hct 25.4 L MCV 98.8 H MCH 30.4 MCHC 30.7 L RDW 16.7 H Plt Count 526 H MPV 10.4 Immature Gran % (Auto) 1.9 H Neut % (Auto) 59.1 Lymph % (Auto) 26.8 [place] % (Auto) 8.0 Eos % (Auto) 3.6 Baso % (Auto) 0.6 Lymph # (Auto) 2.1 [place] # (Auto) 0.6 Eos # (Auto) 0.3 Baso # (Auto) 0.1 Abs Immat Gran (auto) 0.15 H Absolute Neuts (auto) 4.6 Absolute Nucleated RBC 0.000 Nucleated RBC % (auto) 0.0 Smear Tech's Comments VERIFIED Sodium 140 Potassium 4.5 Chloride 108 Carbon Dioxide 20 L Anion Gap 17 BUN 30 H Creatinine 3.57 H Estim Creat Clear Calc 22.5 Estimated GFR 17 POC Glucose 134 H Fasting Glucose 137 H D Calcium 7.9 L Progress Note: A&P Assessment and plan (1) Ischemic cardiomyopathy: Status: Acute Assessment and Plan: Ischemic cardiomyopathy with newly detected LV systolic dysfunction at least of moderate severity with multiple regional wall motion abnormality which may suggest stress-induced cardiomyopathy. However this is a diagnosis of exclusion. Discussed with patient about cardiac catheterization to further evaluate for new onset LV systolic dysfunction. He is currently declining it as he says he does not have any symptoms and he is worried about contrast induced nephropathy and renal failure. These are legitimate concerns. We discussed about risks and benefits. He understands. Continue to maximize metoprolol therapy. Increase to 100 mg t.i.d. and discontinue clonidine therapy. Cannot use lisinopril like drug due to his renal dysfunction at this point in time. Will follow with limited echocardiogram in 2 weeks time to suggest if this was stress-induced cardiomyopathy. Meanwhile will also suggest ischemic workup if patient is agreeable as an outpatient. Patient can be discharged from cardiac perspective but he understands increased risks associated with this decision (2) Non-ST elevated myocardial infarction (non-STEMI): Status: Acute Assessment and Plan: Appears to be secondary to his acute medical illness. Also could be stress- induced cardiomyopathy. This is a diagnosis of exclusion as in 1. Continue management with beta-blockers. Continue aspirin and statin therapy. Outpatient ischemic workup will be pursued if patient is agreeable. (3) Acute renal failure superimposed on chronic kidney disease: Status: Acute Fall Risk Details Current Medications: Current Medications Generic Name Dose Route Start Last Admin Trade Name Freq PRN Reason Stop Dose Admin Allopurinol 300 mg 09/29/20 09:00 10/01/20 10:39 Allopurinol 300 Mg Tablet PO 300 mg DAILY CHIKI Administration Aspirin 81 mg 09/29/20 09:00 10/01/20 10:39 Aspirin Enteric Coated 81 Mg Tablet. PO 81 mg DAILY CHIKI Administration Atorvastatin Calcium 20 mg 09/29/20 09:00 10/01/20 10:41 Atorvastatin Calcium 20 Mg Tablet PO 20 mg DAILY CHIKI Administration Clonidine HCl 0.1 mg 10/01/20 21:00 10/01/20 21:22 Clonidine Hcl 0.1 Mg Tablet PO 0.1 mg BID CHIKI Administration Protocol Clopidogrel Bisulfate 75 mg 09/30/20 09:00 10/01/20 10:41 Clopidogrel Bisulfate 75 Mg Tablet PO 75 mg DAILY CHIKI Administration Colchicine 1.2 mg 09/29/20 18:45 Colchicine 0.6 Mg Tablet PO DAILY PRN gout Docusate Sodium 100 mg 09/28/20 23:57 Docusate Sodium 100 Mg Capsule PO DAILY PRN Constipation Ferrous Sulfate 324 mg 09/29/20 09:00 10/01/20 21:22 Ferrous Sulfate 324 Mg Tablet. PO 324 mg BID CHIKI Administration Folic Acid 1 mg 09/29/20 09:00 10/01/20 10:41 Folic Acid 1 Mg Tablet PO 1 mg DAILY CHIKI Administration Hydroxyzine HCl 25 mg 10/01/20 02:12 10/01/20 02:26 Hydroxyzine Hcl 25 Mg Tablet PO 25 mg Q6H PRN Administration anxiety/restlessness Ceftriaxone Sodium 1 gm/ 50 mls @ 100 mls/hr 09/29/20 06:00 10/02/20 05:44 Sodium Chloride IV Infused Q24H CHIKI Infusion Insulin Glargine 15 unit 10/01/20 21:00 10/01/20 21:22 Insulin Glargine,Hum.Rec.Anlog 100 Unit/Ml 10 Ml Vial SUBCUT 15 unit BEDTIME CHIKI Administration Insulin Human Lispro 0 unit 10/01/20 16:30 10/01/20 21:23 Insulin Lispro 100 Unit/Ml 3 Ml Vial SUBCUT 10/02/20 12:52 4 unit QIDACHS CHIKI Administration Protocol Metoprolol Tartrate 100 mg 10/01/20 11:27 10/01/20 21:22 Metoprolol Tartrate 50 Mg Tablet PO 100 mg BID CHIKI Administration Protocol Oxycodone HCl 5 mg 09/29/20 18:43 10/01/20 10:46 Oxycodone Hcl Immed Release 5 Mg Tablet PO 5 mg BID PRN Administration Pain (Scale Score 7-10) Pharmacy Consult 1 each 09/28/20 15:32 Consult Rx Perform Med Rec MISCELLANE ONCE PRN Consult order Sodium Chloride 3 ml 09/29/20 08:00 10/01/20 21:23 0.9 % Sodium Chloride Flush 3 Ml Syringe IVFLUSH 3 ml QSHIFT CHIKI Administration Tamsulosin HCl 0.4 mg 09/29/20 09:00 10/01/20 10:41 Tamsulosin Hcl 0.4 Mg Capsule PO 0.4 mg DAILY CHIKI Administration Trazodone HCl 25 mg 10/01/20 02:12 Trazodone Hcl 25 Mg Halftab PO BEDTIME PRN insomnia Vitamin D 50 mcg 09/29/20 09:00 10/01/20 10:38 Cholecalciferol (Vitamin D3) 25 Mcg Tablet PO 50 mcg DAILY CHIKI Administration Time Spent With Patient Time: Total time spent is greater than 50% in coordination of care (as documented) at patient's floor/unit and/or counseling patient: Time with patient: 15 - 24 minutes
[2020-10-02] MEDS: 0.9 % Sodium Chloride Flush 3 ML SYRINGE IVFLUSH (09:19)
[2020-10-02] MEDS: Cholecalciferol (Vitamin D3) 25 MCG TABLET 50 MCG PO (09:27)
[2020-10-02] MEDS: Folic Acid 1 MG TABLET PO (09:27)
[2020-10-02] MEDS: allopurinoL 300 MG TABLET PO (09:27)
[2020-10-02 09:28] VITALS: BP 138/59; PULSE 81
[2020-10-02] MEDS: Metoprolol Tartrate 50 MG TABLET 100 MG PO (09:28)
[2020-10-02] MEDS: Aspirin Enteric Coated 81 MG TABLET.DR PO (09:28)
[2020-10-02] MEDS: Clopidogrel Bisulfate 75 MG TABLET PO (09:28)
[2020-10-02] MEDS: Ferrous Sulfate 324 MG TABLET.DR PO (09:28)
[2020-10-02] MEDS: Tamsulosin HCL 0.4 MG CAPSULE PO (09:28)
[2020-10-02] MEDS: Atorvastatin Calcium 20 MG TABLET PO (09:28)
[2020-10-02] MEDS: oxyCODONE HCl Immed Release 5 MG TABLET PO (09:35)
--- NOTE | 2020-10-02 09:54 | P.DS_ITS ---
DS: Providers Provider Date of admission: 09/29/20 00:05 Primary care physician: Unknown Physician Consults: 09/29/20 01:39 Consult to Cardiology Routine Consulting Provider: [facility] Reason for consultation: NSTEMI Consult to Nephrology Routine Consulting Provider: [facility] Reason for consultation: CKD stage 4 Has provider been notified: No DS: Diagnosis Discharge Diagnosis (1) Ischemic cardiomyopathy: Status: Acute (2) Non-ST elevated myocardial infarction (non-STEMI): Status: Acute (3) Acute renal failure superimposed on chronic kidney disease: Status: Acute DS: Summary Hospital Course Hospital Course: Patient was admitted for difficulty urinating found to have acute on chronic kidney injury and non ST elevation [place]. His acute kidney injury appears to have been from hypotension, as some improvement was noted after discontinuing his blood pressure medications And improvement in his blood pressure. his creatinine on admission was 5.38 and at discharge is 3.57. He currently has no indication for hemodialysis although likely will need to start in the near future. It is unclear what role urinary retention has played in this, patient has refused renal ultrasound, his postvoid residual was only 300 cc and Sarkar was unable to be placed. patient will follow up outpatient with Nephrology and Urology. For his NSTEMI patient received 48 hours IV heparin, he was restarted on Plavix and continued on aspirin and statin. His echocardiogram showed reduced ejection fraction in pattern consistent with stress-induced cardiomyopathy. Cardiac catheterization was recommended to rule out ischemia/ coronary disease. however, patient refused due to risk of contrast induced nephropathy. After holding antihypertensives patient's blood pressure did significantly increase and he was restarted on metoprolol at an increased dose of 100 mg 3 times a day. Due to decreased ejection fraction his diltiazem was discontinued. His blood pressure was well controlled with just metoprolol so his clonidine was discontinued as well. Time Spent with Patient Time attestation: Total time spent providing and/or coordinating discharge services: Physical Exam Vital Signs: Vital Signs: Last Vital Signs Temp 98.9 F 10/02/20 07:16 Pulse 81 10/02/20 09:28 Resp 18 10/02/20 04:00 BP 138/59 L 10/02/20 09:28 Pulse Ox 98 10/02/20 07:16 Body Mass Index 34.8 General: AO X 3, no acute distress Resp: CTA bilateral CVS: S1,S2,RRR GI: soft, non tender, non distended Neuro: motor grossly intact Psych: appropriate affect DS: Data Data Completed and Pending Labs on day of discharge: 09/28/20 15:29 ECG 12 lead EKG Stat EKG Documentation DIRECTED 09/28/20 15:30 XR chest 1V Stat 09/28/20 15:31 0.9 % Sodium Chloride [Ns] 2,997 ml IVCONT 2,997 mls/hr cefTRIAXone sodium [Rocephin] 1 gm 0.9 % Sodium Chloride [Ns] 50 ml IV ONCE 09/28/20 15:32 Acetaminophen [Tylenol] 650 mg PO ONCE ONE 09/28/20 15:41 cefTRIAXone sodium [Rocephin] 1 gm .ROUTE .STK-MED ONE 09/28/20 16:08 Complete Blood Count Auto Diff Stat Hold Lt Blue - Possible Coag Stat Lactic Acid Stat Partial Thromboplastin Time Stat Prothrombin Time INR Stat 09/28/20 16:21 SARS COV2 PCR INHOUSE Stat 09/28/20 19:15 vancomycin HCL 2,000 mg 0.9 % Sodium Chloride [Ns] 500 ml IV ONCE 09/28/20 19:28 BMP [Basic Metabolic Panel] Stat Lipase Stat Liver Panel Stat Magnesium Stat Troponin-I High Sensitivity Stat 09/28/20 19:30 0.9 % Sodium Chloride [Ns] 1,000 ml IVCONT 999 mls/hr 09/28/20 19:40 Urine Culture Routine 09/28/20 20:42 CT head/brain wo con Stat 09/28/20 21:51 Heparin Sodium,Porcine 6,000 unit IVPUSH BOLUS PRN 09/28/20 22:00 Heparin Sodium,Porcine/1/2NS 25,000 unit in 250 ml IVCONT Per Protocol units/kg/hr 09/28/20 23:28 Creatine Kinase Total Stat Troponin-I High Sensitivity Stat 09/28/20 23:56 Calcium Gluconate/NaCl,Iso-Osm [Calcium Gluconate] 1 gm in 50 ml IV ONCE Magnesium Sulfate/H2O 2 gm in 50 ml IV ONCE 09/29/20 00:00 Transfer Order Routine 09/29/20 01:39 ECG 12 lead EKG Stat EKG Documentation DIRECTED IV insert/maintain Q4HR Intake and Output QSHIFTE Vital Signs Q4HR 09/29/20 03:40 EKG Documentation DIRECTED 09/29/20 04:27 PTT Heparin Drip Routine 09/29/20 06:23 cefTRIAXone sodium [Rocephin] 1 gm .ROUTE .STK-MED ONE 09/29/20 06:30 oxyCODONE HCl Immed Release [Roxicodone] 5 mg PO ONCE ONE 09/29/20 07:10 Glucose, Whole Blood Routine 09/29/20 07:30 Insulin Lispro [Humalog] See Protocol SUBCUT QIDACHS 09/29/20 08:04 Glucose, Whole Blood Routine 09/29/20 09:00 Metoprolol Tartrate [Lopressor] 50 mg PO BID cloNIDine HCL [Catapres] 0.3 mg PO BID diltiazem HCl 360 mg PO DAILY 09/29/20 Breakfast Diabetic Diet 09/29/20 10:48 PTT Heparin Drip Stat 09/29/20 10:54 Epoetin Kana [Procrit] 20,000 unit SUBCUT ONCE ONE 09/29/20 11:04 Clopidogrel Bisulfate [Plavix] 300 mg PO ONCE ONE 09/29/20 11:22 Glucose, Whole Blood Routine 09/29/20 13:41 Heparin Sodium,Porcine See Protocol IVPUSH BOLUS PRN 09/29/20 15:46 Glucose, Whole Blood Routine 09/29/20 16:32 PTT Heparin Drip Stat 09/29/20 17:40 PTT Heparin Drip Stat 09/29/20 18:54 PTT Heparin Drip Stat 09/29/20 21:00 Glucose, Whole Blood Routine 09/30/20 05:36 cefTRIAXone sodium [Rocephin] 1 gm .ROUTE .ST-MED ONE 09/30/20 06:01 Basic Metabolic Panel Routine Ferritin Routine IRON PROFILE Routine Magnesium Routine 09/30/20 07:41 Glucose, Whole Blood Routine 09/30/20 08:37 CBC W/AUTO DIFF [Complete Blood Count Auto Diff] Stat PTT Heparin Drip Stat SLIDE REVIEW Stat 09/30/20 09:59 EKG Documentation DIRECTED 09/30/20 10:02 Heparin Sodium,Porcine 0 unit IVPUSH BOLUS PRN 09/30/20 10:05 Add Laboratory Test Routine 09/30/20 11:28 Glucose, Whole Blood Routine 09/30/20 16:15 PTT Heparin Drip Stat 09/30/20 17:28 Add Laboratory Test Routine 09/30/20 17:29 Glucose, Whole Blood Routine 09/30/20 20:52 Glucose, Whole Blood Routine 09/30/20 22:18 PTT Heparin Drip Routine 10/01/20 01:39 CA echo transthorac levine w con Routine 10/01/20 02:45 oxyCODONE HCl Immed Release [Roxicodone] 10 mg PO ONCE ONE 10/01/20 04:03 BMP [Basic Metabolic Panel Fasting] Routine Complete Blood Count Auto Diff Routine PTT Heparin Drip Stat SLIDE REVIEW Routine 10/01/20 05:51 Heparin Sodium,Porcine 5,[address]-MED ONE 10/01/20 05:54 cefTRIAXone sodium [Rocephin] [address] g[address] .[address] .[facility] ONE 10/01/20 07:51 Glucose, Whole Blood Routine 10/01/20 08:09 Perflutren Lipid Microspheres [Definity] 2.[address] ONE 10/01/20 10:05 Metoprolol Tartrate [Lopressor] 50 mg PO BID dilTIAZem HCL CD [Cardizem CD] 360 mg PO DAILY 10/01/20 11:27 Metoprolol Tartrate [Lopressor] 100 mg PO BID 10/01/20 11:28 Glucose, Whole Blood Routine 10/01/20 12:52 Glucose, blood poc QIDAS 10/01/20 15:49 Glucose, Whole Blood Routine 10/01/20 20:19 Glucose, Whole Blood Routine 10/01/20 21:00 cloNIDine HCL [Catapres] 0.1 mg PO BID 10/02/20 05:04 cefTRIAXone sodium [Rocephin] [address] gm .[address]TE .[facility] ONE 10/02/20 05:46 BMP [Basic Metabolic Panel Fasting] Routine Complete Blood Count Auto Diff Routine SLIDE REVIEW Routine 10/02/20 07:18 Glucose, Whole Blood Routine Laboratory Last Values WBC 7.7 X10*3/uL (4.8-10.8) 10/02/20 05:46 RBC 2.57 X10*6/uL (4.60-5.80) L 10/02/20 05:46 Hgb 7.8 g/dl (14.0-18.0) L 10/02/20 05:46 Hct 25.4 % (42-52) L 10/02/20 05:46 MCV 98.8 fL (80-98) H 10/02/20 05:46 MCH 30.4 pg (27.0-33.0) 10/02/20 05:46 MCHC 30.7 g/dl (31.0-36.0) L 10/02/20 05:46 RDW 16.7 % (11.0-16.0) H 10/02/20 05:46 Plt Count 526 X10*3/uL (160-400) H 10/02/20 05:46 MPV 10.4 fL (9.4-12.4) 10/02/20 05:46 Immature Gran % (Auto) 1.9 % (0.0-0.4) H 10/02/20 05:46 Neut % (Auto) 59.1 % (45-73) 10/02/20 05:46 Lymph % (Auto) 26.8 % (20-40) 10/02/20 05:46 [place] % (Auto) 8.0 % (2-11) 10/02/20 05:46 Eos % (Auto) 3.6 % (0-4) 10/02/20 05:46 Baso % (Auto) 0.6 % (0-2) 10/02/20 05:46 Lymph # (Auto) 2.1 X10*3/uL (1.2-4.9) 10/02/20 05:46 [place] # (Auto) 0.6 X10*3/uL (0.1-1.2) 10/02/20 05:46 Eos # (Auto) 0.3 X10*3/uL (0.0-0.4) 10/02/20 05:46 Baso # (Auto) 0.1 X10*3/uL (0.0-0.2) 10/02/20 05:46 Abs Immat Gran (auto) 0.15 X10*3/uL (0.00-0.03) H 10/02/20 05:46 Absolute Neuts (auto) 4.6 X10*3/uL (2.0-8.3) 10/02/20 05:46 Absolute Nucleated RBC 0.000 X10*3/uL (0.0-0.012) 10/02/20 05:46 Nucleated RBC % (auto) 0.0 /100WBC (0.0-0.2) 10/02/20 05:46 Smear Tech's Comments VERIFIED 10/02/20 05:46 PT 12.2 SEC (10.8-13.0) 09/28/20 16:08 INR 1.0 (0.9-1.1) 09/28/20 16:08 APTT 29.7 SEC (24.1-38.0) 09/28/20 16:08 PTT (Heparin Protocol) 49.3 SEC (53-77.9) L D 10/01/20 04:03 Hold Blue Top SEE NOTE 09/28/20 16:08 Sodium 140 mmol/L (135-145) 10/02/20 05:46 Potassium 4.5 mmol/l (3.3-5.1) 10/02/20 05:46 Chloride 108 mmol/L (96-108) 10/02/20 05:46 Carbon Dioxide 20 mmol/L (22-29) L 10/02/20 05:46 Anion Gap 17 (12-20) 10/02/20 05:46 BUN 30 mg/dL (9-16) H 10/02/20 05:46 Creatinine 3.57 mg/dL (0.5-1.4) H 10/02/20 05:46 Estim Creat Clear Calc 22.5 10/02/20 05:46 Estimated GFR 17 10/02/20 05:46 POC Glucose 134 mg/dL (60-115) H 10/02/20 07:18 Random Glucose 156 mg/dL (60-115) H D 09/30/20 06:01 Fasting Glucose 137 mg/dL (60-99) H D 10/02/20 05:46 Lactic Acid 1.5 mmol/L (0.5-2.0) 09/28/20 16:08 Calcium 7.9 mg/dL (8.4-10.2) L 10/02/20 05:46 Magnesium 2.0 mg/dL (1.6-2.6) 09/30/20 06:01 Iron 43 mcg/dL (45-160) L 09/30/20 06:01 TIBC 189 mcg/dL (228-428) L 09/30/20 06:01 % Saturation 23 % (15-50) 09/30/20 06:01 Unsat Iron Binding 146 ug/dL 09/30/20 06:01 Ferritin 983 ng/mL (20-250) H 09/30/20 06:01 Total Bilirubin < 0.2 mg/dL (0.0-1.0) 09/28/20 19:28 Total Bilirubin Cancelled 09/28/20 19:28 Direct Bilirubin < 0.2 mg/dL (0.0-0.5) 09/28/20 19:28 Direct Bilirubin Cancelled 09/28/20 19:28 AST 14 U/L (5-37) 09/28/20 19:28 AST Cancelled 09/28/20 19:28 ALT 9 U/L (0-40) 09/28/20 19:28 ALT Cancelled 09/28/20 19:28 Alkaline Phosphatase 83 U/L (39-117) D 09/28/20 19:28 Alkaline Phosphatase Cancelled 09/28/20 19:28 Total Creatine Kinase 67 U/L (38-174) 09/28/20 23:28 Troponin I High Sens 2136.6 ng/L (<3.5-35.0) H 09/28/20 23:28 Total Protein 5.8 g/dL (6.5-8.0) L 09/28/20 19:28 Total Protein Cancelled 09/28/20 19:28 Albumin 2.9 g/dL (3.5-5.0) L 09/28/20 19:28 Albumin Cancelled 09/28/20 19:28 Lipase 16 U/L (8-78) 09/28/20 19:28 Lipase Cancelled 09/28/20 19:28 Urine Color YELLOW 09/28/20 19:28 Urine Appearance TURBID 09/28/20 19:28 Urine pH 6.5 (5.0-8.0) 09/28/20 19:28 Ur Specific [place] 1.025 (1.005-1.025) 09/28/20 19:28 Urine Protein 3+ MG/DL (NEG-TRACE) H 09/28/20 19:28 Urine Glucose (UA) NEG MG/DL (NEG) 09/28/20 19:28 Urine Ketones 5 MG/DL (NEG) 09/28/20 19:28 Urine Blood 3+ (NEG) H 09/28/20 19:28 Urine Nitrite POS (NEG) H 09/28/20 19:28 Ur Leukocyte Esterase 2+ (NEG) H 09/28/20 19:28 Urine RBC 5-9 /HPF (0) H 09/28/20 19:28 Urine WBC TNTC /HPF (0-4) H 09/28/20 19:28 Ur Squamous Epith Cells TRACE /LPF 09/28/20 19:28 Urine Bacteria 3+ /LPF 09/28/20 19:28 Coronavirus (PCR) NEGATIVE (Negative) 09/28/20 16:21 Preliminary micro results at discharge 09/28/20 16:21 Blood Culture - Preliminary Blood - Venous No growth after 48 hours. 09/28/20 16:21 Blood Culture - Preliminary Blood - Venous No growth after 48 hours. Discharge Plan Discharge Patient Disposition: Home, Self-Care Referrals: Lane Pham MD [Physician] - Lucius Desouza MD [Physician] - Ignacio Lopez MD [Physician] - Physician,Unknown [Primary Care Provider] - Discharge Medications: New clopidogrel 75 mg Tablet 75 mg PO DAILY Qty: 30 RF: 0 metoprolol tartrate 100 mg tablet 100 mg PO TID Qty: 90 RF: 0 Continued atorvastatin 40 mg Tablet 20 mg PO DAILY RF: 0 glyburide 5 mg Tablet 5 mg PO BID RF: 0 aspirin 81 mg Tablet,Delayed Release (Dr/Ec) 81 mg PO DAILY RF: 0 oxycodone-acetaminophen [Percocet] 10-325 mg Tablet 1 tab PO BID PRN (Reason: Pain (Scale Score 7-10)) RF: 0 tamsulosin 0.4 mg Capsule 0.4 mg PO DAILY RF: 0 ferrous sulfate 325 mg (65 mg iron) Tablet 325 mg PO BID RF: 0 docusate sodium 100 mg Capsule 100 mg PO DAILY PRN (Reason: Constipation) RF: 0 folic acid 1 mg Tablet 1 mg PO DAILY RF: 0 allopurinol 300 mg Tablet 300 mg PO DAILY RF: 0 colchicine 0.6 mg Tablet 1.2 mg PO DAILY PRN (Reason: gout) RF: 0 Lantus Solostar U-100 Insulin 100 unit/mL (3 mL) Insulin Pen 36 unit SUBCUT BEDTIME RF: 0 cholecalciferol (vitamin D3) 50 mcg (2,000 unit) Tablet 50 mcg PO DAILY RF: 0 Discontinued clonidine HCl 0.3 mg Tablet 0.3 mg PO BID RF: 0 metoprolol tartrate 50 mg Tablet 50 mg PO BID RF: 0 diltiazem HCl 360 mg Tablet Extended Release 24 Hr 360 mg PO DAILY RF: 0 Discharge Orders: Discharge Order (Routine); Ordered 10/02/20 Ordered By: Abimael Keys Activity on Discharge: As tolerated Visit Report Forms: Patient Portal Discharge page Care Plan Goals: recovery Health Concerns: renal dysfunction, cardiomyopathy, urinary retention Plan of Treatment: start plavix, increase metoprolol to 100mg 3 times a day, stop cardizem and clonidine, follow up with kidney doctor, heart doctor, and urologist
--- NOTE | 2020-10-02 10:11 | MHC.CM.PN ---
pt dcd home n jovanni
[2020-10-02 11:23] VITALS: BP 123/59; PULSE 69; RESP 20; TEMP 37; O2SAT 99
[2020-10-02 11:51] LABS: Glucose, Whole Blood 130 mg/dL (60-115)
--- NOTE | 2020-10-02 12:16 | PM.PNNEP ---
Subjective Subjective Interval history: Seen and examiend, Events noted appreciate card involvement PT refusing furhter card w/u at htis time Physical Exam Vital Signs: Vital Signs: Last Vital Signs Temp 98.6 F 10/02/20 11:23 Pulse 69 10/02/20 11:23 Resp 20 10/02/20 11:23 BP 123/59 L 10/02/20 11:23 Pulse Ox 99 10/02/20 11:23 Body Mass Index 34.8 Appearance: Alert. Oriented X3. No acute distress. Eyes: Pupils equal, round and reactive to light. ENT: Pharynx normal. Neck: Normal inspection. Neck supple. CVS: Normal heart rate and rhythm. Pulses normal. Respiratory: No respiratory distress. Breath sounds normal. Abdomen: Soft and nontender. Skin: Skin warm and dry. Normal skin color. Normal skin turgor. Extremities: No lower extremity edema. No calf ttp Neuro: Oriented X 3. No motor deficit. No sensory deficit. Const: General: cooperative and comfortable Orientation/consciousness: patient oriented x3 HENMT: Head: Yes normal to inspection Eyes: General: appearance normal, both eyes and all related structures Neck: Neck: Yes normal visual inspection Chest: Chest palpation & inspection: normal inspection of the chest Resp: Effort & Inspection: normal respiratory effort Cardio: Jugular venous distension: no JVD Rate: regular rate Rhythm: regular rhythm Heart sounds: S1 normal heart sound present and S2 normal heart sound present GI: Inspection: Yes normal to inspection Skin: General skin exam: no rashes or lesions noted Neuro: General: patient oriented x3 Assessment & Plan Assessment and plan (1) Non-ST elevated myocardial infarction (non-STEMI): Status: Acute (2) Acute UTI: Status: Acute (3) Acute renal failure superimposed on chronic kidney disease: Status: Acute (4) Anemia: Status: Acute (5) Diabetes 1.5, managed as type 1: Status: Acute (6) High cholesterol: Status: Acute (7) Gout: Status: Acute (8) HTN (hypertension): Status: Acute (9) BPH (benign prostatic hyperplasia): Status: Acute (10) Constipation: Status: Acute Assessment and Plan: 1. VIDYA: most c/w OBs uropathy from BENTLEY and dehydration....on flomax doing better but need to r/o cont Urinary retention..unable to pass melvin...refusing renal U/S Scr decr and cleos to bsl 2. 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 Anemia: procrit as oupt 4. DM 5. CAD ? need for CCath..card eval...w/u as an oupt per PT wishes/refusal to do in hosp 6. MBD of CKD 7. BPH and ques BENTLEY..needs urol evl REC: track UOP/renal func; procrit as outpt ( I will arrange) protect LUE for future AVF; avoid NToxins; urol eval of BENTLEY; no indicatin for HD at this time but supsect he will need to be on dialysis in next 6-12 monhts Time Spent With Patient Time: Total time spent is greater than 50% in coordination of care (as documented) at patient's floor/unit and/or counseling patient:
== END 2020-10-02 13:18 | disposition home or self-care (01) | DRG 280 ==
LOC: HO.ED 23:53 → HO.IMC 09-29 00:29
PROVIDERS: Emergency Medicine; Internal Medicine; Internal Medicine Nephrology; Admitting Provider Internal Medicine; Emergency Provider Internal Medicine; Visit Provider Internal Medicine
DX: I21.4 Non-ST elevation (NSTEMI) myocardial infarction (principal); N17.0 Acute kidney failure with tubular necrosis; N18.4 Chronic kidney disease, stage 4 (severe); N39.0 Urinary tract infection, site not specified; N13.8 Other obstructive and reflux uropathy; I51.81 Takotsubo syndrome; I12.9 Hypertensive chronic kidney disease with stage 1 through stage 4 chronic kidney disease, or unspecified chronic kidney disease; M10.9 Gout, unspecified; Z20.828 Contact with and (suspected) exposure to other viral communicable diseases; I25.2 Old myocardial infarction; D63.1 Anemia in chronic kidney disease; N40.0 Benign prostatic hyperplasia without lower urinary tract symptoms; K59.00 Constipation, unspecified; I95.9 Hypotension, unspecified; R94.31 Abnormal electrocardiogram [ECG] [EKG]; N40.1 Benign prostatic hyperplasia with lower urinary tract symptoms; E11.22 Type 2 diabetes mellitus with diabetic chronic kidney disease; Z79.02 Long term (current) use of antithrombotics/antiplatelets; Z79.82 Long term (current) use of aspirin; Z79.891 Long term (current) use of opiate analgesic; Z79.899 Other long term (current) drug therapy
CPT/HCPCS: 36415; 70120; 70450; 71045; 80048; 80076; 81001; 82550; 82728; 82947; 83540; 83605; 83690; 83735; 84484; 85025; 85610; 85730; 87040; 87086; 93005; 96361; 96365; 99285; 99291; J0610; J0696; J0885; J3475; Q9957; U0003

== ENCOUNTER → 2020-10-17 14:38 | Outpatient (BNVA) | payer OTHER, SELFPAY | PROVIDERS: Visit Provider Internal Medicine Cardiovascular Disease | DX: Z76.89 Persons encountering health services in other specified circumstances (principal) ==

== ENCOUNTER 2020-11-22 12:37 | Outpatient (REF) | payer OTHER, SELFPAY ==
[2020-11-22 12:46] LABS: MANUAL DIFF FLAG NO
[2020-11-22 12:49] LABS: Basophils Percent Auto 0.4 % (0-2); Eosinophils Absolute Auto 0.1 X10*3/uL (0.0-0.4); Eosinophils Percent Auto 0.4 % (0-4); Hemoglobin 7.6 g/dl (14.0-18.0); Imm Gran Abs Auto 0.04 X10*3/uL (0.00-0.03); Imm Gran Pct Auto 0.4 % (0.0-0.4); Lymphocytes Absolute Auto 1.9 X10*3/uL (1.2-4.9); Lymphocytes Percent Auto 17.3 % (20-40); Mean Corpuscular HGB Conc 30.4 g/dl (31.0-36.0); Mean Corpuscular Hemoglobin 28.9 pg (27.0-33.0); Mean Corpuscular Volume 95.1 fL (80-98); Mean Platelet Volume 10.3 fL (9.4-12.4); Monocytes Percent Auto 8.7 % (2-11); Neutrophils Absolute Auto 8.2 X10*3/uL (2.0-8.3); Neutrophils Percent Auto 72.8 % (45-73); Platelet Count 354 X10*3/uL (160-400); Red Blood Count 2.63 X10*6/uL (4.60-5.80); Red Cell Distribution Width 17.6 % (11.0-16.0); White Blood Count 11.2 X10*3/uL (4.8-10.8)
[2020-11-22 13:21] LABS: Albumin Level 3.7 g/dL (3.5-5.0); Anion Gap 13 (12-20); Blood Urea Nitrogen 52 mg/dL (9-16); Calcium 8.4 mg/dL (8.4-10.2); Carbon Dioxide 20 mmol/L (22-29); Chloride 109 mmol/L (96-108); Estimated Glomerular Filt Rate 16; Iron 16 mcg/dL (45-160); Percent Iron Saturation 7 % (15-50); Phosphorus 3.6 mg/dL (2.7-4.5); Potassium 4.8 mmol/l (3.3-5.1); Sodium 137 mmol/L (135-145); Total Iron Binding Capacity 238 mcg/dL (228-428); Unsaturated Iron Binding 222 ug/dL
[2020-11-22 13:32] LABS: Renal w Reflex Lab Use Only Order verified
[2020-11-22 13:42] LABS: Ferritin 550 ng/mL (20-250)
[2020-11-26 14:08] LABS: Calcium (PTHI) 8.9 mg/dL (8.6-10.3); PTHI 64 pg/mL (14-64)
== END 2020-11-22 12:38 | disposition home or self-care (01) ==
LOC: HO.LNP 12:37
PROVIDERS: Visit Provider Internal Medicine Nephrology
DX: E11.22 Type 2 diabetes mellitus with diabetic chronic kidney disease (principal); I12.9 Hypertensive chronic kidney disease with stage 1 through stage 4 chronic kidney disease, or unspecified chronic kidney disease; N18.4 Chronic kidney disease, stage 4 (severe); N17.9 Acute kidney failure, unspecified; E11.21 Type 2 diabetes mellitus with diabetic nephropathy; K85.90 Acute pancreatitis without necrosis or infection, unspecified; I48.91 Unspecified atrial fibrillation; M10.9 Gout, unspecified; I22.2 Subsequent non-ST elevation (NSTEMI) myocardial infarction; A41.9 Sepsis, unspecified organism; Z79.01 Long term (current) use of anticoagulants
CPT/HCPCS: 80051; 82040; 82306; 82310; 82565; 82728; 83540; 83735; 83970; 84100; 84520; 85025

== ENCOUNTER 2020-11-23 14:22 | Outpatient (REF) | payer OTHER, SELFPAY ==
[2020-11-23 14:44] LABS: Glucose Urine UA NEG (NEG); Leukocyte Esterase Urine NEG (NEG); Nitrite Urine NEG (NEG); Specific Gravity - Urine 1.025 (1.005-1.025); Urine Blood 1+ (NEG); Urine Ketones NEG (NEG); Urine Protein 2+ MG/DL (NEG-TRACE)
[2020-11-23 14:46] LABS: Appearance Urine CLEAR; Color Urine YELLOW
[2020-11-23 14:53] LABS: Bacteria Urine 2+ /LPF; Squamous Epithelial Cell Urine 1+ /LPF
[2020-11-23 15:46] LABS: Creatinine Urine 115.72 mg/dL; Protein/Creatinine Ratio, Ur 2.13 (<0.2); Total Protein Urine Random 246 mg/dL (<12)
[2020-11-23 15:47] LABS: Creatinine Urine 115.06 mg/dL; Microalbum/Creatinine Ratio Ur 1246.3 ug/mg cr
== END 2020-11-23 14:23 | disposition home or self-care (01) ==
LOC: HO.LNP 14:22
PROVIDERS: PCP Internal Medicine Nephrology; Visit Provider Internal Medicine Nephrology
DX: E11.22 Type 2 diabetes mellitus with diabetic chronic kidney disease (principal); I12.9 Hypertensive chronic kidney disease with stage 1 through stage 4 chronic kidney disease, or unspecified chronic kidney disease; N18.4 Chronic kidney disease, stage 4 (severe); N17.9 Acute kidney failure, unspecified; E11.21 Type 2 diabetes mellitus with diabetic nephropathy; K85.90 Acute pancreatitis without necrosis or infection, unspecified; M10.9 Gout, unspecified; I22.2 Subsequent non-ST elevation (NSTEMI) myocardial infarction; I48.91 Unspecified atrial fibrillation; A41.9 Sepsis, unspecified organism
CPT/HCPCS: 81001; 82043; 84156; 87086; 87088; 87186

== ENCOUNTER 2021-02-01 12:34 | Outpatient (REF) | payer MEDICARE, SELFPAY ==
[2021-02-01 12:44] LABS: MANUAL DIFF FLAG NO
[2021-02-01 13:05] LABS: Glucose Urine UA NEG (NEG); Leukocyte Esterase Urine 3+ (NEG); Nitrite Urine POS (NEG); Urine Blood 1+ (NEG); Urine Ketones NEG (NEG); Urine Protein 2+ MG/DL (NEG-TRACE)
[2021-02-01 13:06] LABS: Appearance Urine CLOUDY; Color Urine YELLOW
[2021-02-01 13:07] LABS: Basophils Absolute Auto 0.1 X10*3/uL (0.0-0.2); Basophils Percent Auto 0.8 % (0-2); Eosinophils Absolute Auto 0.2 X10*3/uL (0.0-0.4); Hematocrit 26.6 % (42-52); Hemoglobin 8.4 g/dl (14.0-18.0); Imm Gran Abs Auto 0.01 X10*3/uL (0.00-0.03); Imm Gran Pct Auto 0.2 % (0.0-0.4); Lymphocytes Absolute Auto 2.2 X10*3/uL (1.2-4.9); Lymphocytes Percent Auto 35.8 % (20-40); Mean Corpuscular HGB Conc 31.6 g/dl (31.0-36.0); Mean Corpuscular Hemoglobin 29.7 pg (27.0-33.0); Mean Platelet Volume 10.5 fL (9.4-12.4); Monocytes Absolute Auto 0.4 X10*3/uL (0.1-1.2); Monocytes Percent Auto 6.7 % (2-11); Neutrophils Absolute Auto 3.2 X10*3/uL (2.0-8.3); Neutrophils Percent Auto 52.5 % (45-73); Platelet Count 316 X10*3/uL (160-400); Red Blood Count 2.83 X10*6/uL (4.60-5.80); Red Cell Distribution Width 17.7 % (11.0-16.0)
[2021-02-01 13:37] LABS: Bacteria Urine 3+ /LPF; Mucus Urine 2+ /LPF; RBC Urine 0 /HPF (0); WBC Urine TNTC /HPF (0-4)
[2021-02-01 13:40] LABS: Creatinine Urine 79.31 mg/dL; Protein/Creatinine Ratio, Ur 1.58 (<0.2); Total Protein Urine Random 125 mg/dL (<12)
[2021-02-01 13:56] LABS: Microalbum/Creatinine Ratio Ur 835.9 ug/mg cr
[2021-02-01 14:02] LABS: Ferritin 466 ng/mL (20-250)
[2021-02-01 14:28] LABS: Anion Gap 14 (12-20); Blood Urea Nitrogen 79 mg/dL (9-16); Calcium 8.4 mg/dL (8.4-10.2); Carbon Dioxide 20 mmol/L (22-29); Chloride 112 mmol/L (96-108); Estimated Glomerular Filt Rate 13; Iron 89 mcg/dL (45-160); Magnesium 1.9 mg/dL (1.6-2.6); Percent Iron Saturation 37 % (15-50); Phosphorus 5.3 mg/dL (2.7-4.5); Potassium 5.2 mmol/L (3.3-5.1); Sodium 141 mmol/L (135-145); Total Iron Binding Capacity 239 mcg/dL (228-428); Unsaturated Iron Binding 150 ug/dL
[2021-02-04 16:07] LABS: Calcium (PTHI) 8.7 mg/dL (8.6-10.3); PTHI 102 pg/mL (14-64)
== END 2021-02-01 12:35 | disposition home or self-care (01) ==
LOC: HO.LNP 12:34
PROVIDERS: Visit Provider Internal Medicine Nephrology
DX: E11.21 Type 2 diabetes mellitus with diabetic nephropathy (principal); M10.00 Idiopathic gout, unspecified site; N18.4 Chronic kidney disease, stage 4 (severe)
CPT/HCPCS: 80051; 81001; 82043; 82306; 82310; 82565; 82728; 83540; 83735; 83970; 84100; 84156; 84520; 85025

== ENCOUNTER 2021-02-27 14:24 | Outpatient (REF) | payer MEDICARE, SELFPAY ==
[2021-02-27 14:35] LABS: MANUAL DIFF FLAG NO
[2021-02-27 14:41] LABS: Basophils Absolute Auto 0.1 X10*3/uL (0.0-0.2); Basophils Percent Auto 0.8 % (0-2); Eosinophils Absolute Auto 0.2 X10*3/uL (0.0-0.4); Eosinophils Percent Auto 2.8 % (0-4); Hematocrit 29.5 % (42-52); Hemoglobin 9.1 g/dl (14.0-18.0); Imm Gran Abs Auto 0.03 X10*3/uL (0.00-0.03); Imm Gran Pct Auto 0.4 % (0.0-0.4); Lymphocytes Percent Auto 25.1 % (20-40); Mean Corpuscular HGB Conc 30.8 g/dl (31.0-36.0); Mean Corpuscular Hemoglobin 29.8 pg (27.0-33.0); Mean Corpuscular Volume 96.7 fL (80-98); Monocytes Absolute Auto 0.6 X10*3/uL (0.1-1.2); Monocytes Percent Auto 7.9 % (2-11); Platelet Count 256 X10*3/uL (160-400); Red Blood Count 3.05 X10*6/uL (4.60-5.80); Red Cell Distribution Width 15.6 % (11.0-16.0); White Blood Count 7.9 X10*3/uL (4.8-10.8)
[2021-02-27 14:49] LABS: Glucose Urine UA 250 MG/DL (NEG); Leukocyte Esterase Urine 3+ (NEG); Nitrite Urine POS (NEG); UACC Culture Trigger YES; Urine Blood 1+ (NEG); Urine Ketones NEG (NEG); Urine Protein 2+ MG/DL (NEG-TRACE)
[2021-02-27 14:53] LABS: Appearance Urine CLOUDY; Color Urine YELLOW
[2021-02-27 14:58] LABS: Bacteria Urine 1+ /LPF; Squamous Epithelial Cell Urine 2+ /LPF; UACC CULT YES; WBC Urine TNTC /HPF (0-4)
[2021-02-27 17:45] LABS: Creatinine Urine 57.43 mg/dL; Microalbum/Creatinine Ratio Ur 1164.8 ug/mg cr; Protein/Creatinine Ratio, Ur 2.25 (<0.2); Total Protein Urine Random 129 mg/dL (<12)
[2021-02-27 18:17] LABS: Albumin Level 3.5 g/dL (3.5-5.0); Calcium 7.8 mg/dL (8.4-10.2); Iron 49 mcg/dL (45-160); Percent Iron Saturation 21 % (15-50); Phosphorus 4.5 mg/dL (2.7-4.5); Total Iron Binding Capacity 232 mcg/dL (228-428); Unsaturated Iron Binding 183 ug/dL
[2021-02-27 18:23] LABS: Ferritin 664 ng/mL (20-250); Vitamin D 25-OH Total 30.1 ng/mL (>30)
[2021-02-27 19:16] LABS: Renal w Reflex Lab Use Only Order verified
[2021-02-27 19:34] LABS: Anion Gap 15 (12-20); Blood Urea Nitrogen 72 mg/dL (9-16); Carbon Dioxide 21 mmol/L (22-29); Chloride 108 mmol/L (96-108); Estimated Glomerular Filt Rate 12; Sodium 139 mmol/L (135-145)
[2021-02-28 11:26] LABS: Calcium (PTHI) 7.9 mg/dL (8.6-10.3); PTHI 149 pg/mL (14-64)
== END 2021-02-27 14:25 | disposition home or self-care (01) ==
LOC: HO.LNP 14:24
PROVIDERS: Visit Provider Internal Medicine Nephrology
DX: M10.9 Gout, unspecified (principal); I48.91 Unspecified atrial fibrillation; A41.9 Sepsis, unspecified organism; I22.2 Subsequent non-ST elevation (NSTEMI) myocardial infarction; N17.9 Acute kidney failure, unspecified; E11.21 Type 2 diabetes mellitus with diabetic nephropathy; E11.51 Type 2 diabetes mellitus with diabetic peripheral angiopathy without gangrene; K85.90 Acute pancreatitis without necrosis or infection, unspecified
CPT/HCPCS: 80051; 81001; 82040; 82043; 82306; 82310; 82565; 82728; 83540; 83735; 83970; 84100; 84156; 84520; 85025; 87086

== ENCOUNTER 2021-03-25 11:08 | Outpatient (REF) | payer MEDICARE, OTHER, SELFPAY ==
[2021-03-25 14:04] LABS: Glucose Urine UA 250 MG/DL (NEG); Leukocyte Esterase Urine 1+ (NEG); Nitrite Urine POS (NEG); Specific Gravity - Urine 1.025 (1.005-1.025); Urine Blood 1+ (NEG); Urine Ketones NEG (NEG); Urine Protein 2+ MG/DL (NEG-TRACE)
[2021-03-25 14:09] LABS: Appearance Urine HAZY; Color Urine STRAW
[2021-03-25 14:25] LABS: Hematocrit 29.1 % (42-52); Mean Corpuscular HGB Conc 30.9 g/dl (31.0-36.0); Mean Corpuscular Hemoglobin 30.3 pg (27.0-33.0); Mean Platelet Volume 9.8 fL (9.4-12.4); Platelet Count 325 X10*3/uL (160-400); Red Blood Count 2.97 X10*6/uL (4.60-5.80); Red Cell Distribution Width 14.4 % (11.0-16.0); White Blood Count 6.2 X10*3/uL (4.8-10.8)
[2021-03-25 14:50] LABS: Albumin Level 3.6 g/dL (3.5-5.0); Anion Gap 16 (12-20); Blood Urea Nitrogen 39 mg/dL (9-16); Calcium 7.9 mg/dL (8.4-10.2); Carbon Dioxide 20 mmol/L (22-29); Chloride 109 mmol/L (96-108); Estimated Glomerular Filt Rate 16; Iron 75 mcg/dL (45-160); Magnesium 1.9 mg/dL (1.6-2.6); Percent Iron Saturation 29 % (15-50); Phosphorus 4.3 mg/dL (2.7-4.5); Potassium 4.7 mmol/L (3.3-5.1); Sodium 140 mmol/L (135-145); Total Iron Binding Capacity 255 mcg/dL (228-428); Unsaturated Iron Binding 180 ug/dL
[2021-03-25 14:59] LABS: Bacteria Urine 3+ /LPF
[2021-03-25 15:02] LABS: Ferritin 763 ng/mL (20-250); Vitamin D 25-OH Total 37.8 ng/mL (>30)
[2021-03-25 15:06] LABS: Total Protein Urine Random 165 mg/dL (<12)
== END 2021-03-25 11:09 | disposition home or self-care (01) ==
LOC: HO.10HDL 11:08
PROVIDERS: Visit Provider Internal Medicine Nephrology
DX: N18.5 Chronic kidney disease, stage 5 (principal); D63.1 Anemia in chronic kidney disease; N25.0 Renal osteodystrophy; R80.1 Persistent proteinuria, unspecified; M10.00 Idiopathic gout, unspecified site; E11.51 Type 2 diabetes mellitus with diabetic peripheral angiopathy without gangrene; E11.22 Type 2 diabetes mellitus with diabetic chronic kidney disease
CPT/HCPCS: 36415; 80051; 81001; 82040; 82043; 82306; 82310; 82565; 82728; 83540; 83735; 84100; 84156; 84520; 85027; 87086; 87088; 87186

== ENCOUNTER 2021-06-07 12:07 | Outpatient (REF) | payer MEDICARE, OTHER, SELFPAY ==
[2021-06-07 12:11] LABS: MANUAL DIFF FLAG NO
[2021-06-07 12:22] LABS: Basophils Absolute Auto 0.1 X10*3/uL (0.0-0.2); Eosinophils Absolute Auto 0.2 X10*3/uL (0.0-0.4); Eosinophils Percent Auto 2.8 % (0-4); Hematocrit 28.1 % (42-52); Hemoglobin 8.7 g/dl (14.0-18.0); Imm Gran Abs Auto 0.02 X10*3/uL (0.00-0.03); Imm Gran Pct Auto 0.3 % (0.0-0.4); Lymphocytes Absolute Auto 2.6 X10*3/uL (1.2-4.9); Lymphocytes Percent Auto 36.6 % (20-40); Monocytes Absolute Auto 0.5 X10*3/uL (0.1-1.2); Monocytes Percent Auto 6.5 % (2-11); Neutrophils Absolute Auto 3.7 X10*3/uL (2.0-8.3); Neutrophils Percent Auto 52.8 % (45-73); Platelet Count 381 X10*3/uL (160-400); Red Blood Count 2.81 X10*6/uL (4.60-5.80); White Blood Count 7.1 X10*3/uL (4.8-10.8)
[2021-06-07 12:29] LABS: Estimated Average Glucose 183 mg/dL; Hemoglobin A1C 149.5413 umol/L
[2021-06-07 13:34] LABS: Vitamin D 25-OH Total 29.4 ng/mL (>30)
[2021-06-07 13:35] LABS: Anion Gap 14 (12-20); Blood Urea Nitrogen 49 mg/dL (9-16); Calcium 8.5 mg/dL (8.4-10.2); Carbon Dioxide 24 mmol/L (22-29); Chloride 111 mmol/L (96-108); Estimated Glomerular Filt Rate 13; Iron 56 mcg/dL (45-160); Percent Iron Saturation 24 % (15-50); Potassium 5.1 mmol/L (3.3-5.1); Sodium 144 mmol/L (135-145); Total Iron Binding Capacity 229 mcg/dL (228-428); Unsaturated Iron Binding 173 ug/dL
== END 2021-06-07 12:08 | disposition home or self-care (01) ==
LOC: HO.HVNA 12:07
PROVIDERS: Visit Provider Internal Medicine Nephrology
DX: N18.5 Chronic kidney disease, stage 5 (principal)
CPT/HCPCS: 36415; 80051; 82306; 82310; 82565; 83036; 83540; 84520; 85025

== ENCOUNTER 2021-07-08 07:36 | Outpatient (REF) | payer MEDICARE, OTHER, SELFPAY | END 2021-07-08 07:37 | disposition home or self-care (01) | LOC: HO.HOSX 07:36 | PROVIDERS: Visit Provider Physician Assistant | DX: Z13.89 Encounter for screening for other disorder (principal) ==

== ENCOUNTER → 2021-07-15 12:56 | Outpatient (BNVA) | payer OTHER, MEDICARE, SELFPAY | PROVIDERS: Visit Provider Physician Assistant | DX: M17.0 Bilateral primary osteoarthritis of knee (principal) | CPT/HCPCS: 99202 ==

== ENCOUNTER → 2021-07-23 09:22 | Outpatient (BNVA) | payer MEDICARE, SELFPAY | PROVIDERS: Visit Provider Physician Assistant | DX: M17.0 Bilateral primary osteoarthritis of knee (principal); G89.29 Other chronic pain; I10 Essential (primary) hypertension; E13.9 Other specified diabetes mellitus without complications | CPT/HCPCS: 20610; 99212; J7318 ==

== ENCOUNTER 2021-07-23 10:00 | Outpatient (REF) | payer MEDICARE, OTHER, SELFPAY ==
[2021-07-23 13:44] LABS: Hematocrit 32.2 % (42-52); Hemoglobin 10.1 g/dl (14.0-18.0); Mean Corpuscular HGB Conc 31.4 g/dl (31.0-36.0); Mean Corpuscular Hemoglobin 30.5 pg (27.0-33.0); Mean Corpuscular Volume 97.3 fL (80-98); Mean Platelet Volume 10.8 fL (9.4-12.4); Platelet Count 320 X10*3/uL (160-400); Red Blood Count 3.31 X10*6/uL (4.60-5.80); Red Cell Distribution Width 15.9 % (11.0-16.0); White Blood Count 7.7 X10*3/uL (4.8-10.8)
[2021-07-23 14:35] LABS: Anion Gap 14 (12-20); Blood Urea Nitrogen 59 mg/dL (9-16); Calcium 8.3 mg/dL (8.4-10.2); Carbon Dioxide 19 mmol/L (22-29); Chloride 114 mmol/L (96-108); Estimated Glomerular Filt Rate 12; Iron 60 mcg/dL (45-160); Percent Iron Saturation 24 % (15-50); Potassium 5.2 mmol/L (3.3-5.1); Sodium 142 mmol/L (135-145); Total Iron Binding Capacity 247 mcg/dL (228-428); Unsaturated Iron Binding 187 ug/dL
[2021-07-23 15:01] LABS: Ferritin 538 ng/mL (20-250)
== END 2021-07-23 10:01 | disposition home or self-care (01) ==
LOC: HO.10HDL 10:00
PROVIDERS: Visit Provider Internal Medicine Nephrology
DX: N18.5 Chronic kidney disease, stage 5 (principal); D63.1 Anemia in chronic kidney disease; R80.1 Persistent proteinuria, unspecified; N25.0 Renal osteodystrophy
CPT/HCPCS: 36415; 80051; 82310; 82565; 82728; 83540; 84520; 85027

== ENCOUNTER 2021-10-01 09:55 | Outpatient (REF) | payer MEDICARE, OTHER, SELFPAY ==
[2021-10-01 13:56] LABS: Appearance Urine CLOUDY; Color Urine STRAW; Glucose Urine UA 100 MG/DL (NEG); Leukocyte Esterase Urine 3+ (NEG); Nitrite Urine POS (NEG); Urine Blood 1+ (NEG); Urine Ketones NEG (NEG); Urine Protein 2+ MG/DL (NEG-TRACE)
[2021-10-01 14:08] LABS: Bacteria Urine 2+ /LPF; RBC Urine 0-2 /HPF (0); Squamous Epithelial Cell Urine 1+ /LPF
[2021-10-01 14:19] LABS: Hemoglobin 9.8 g/dl (14.0-18.0); Mean Corpuscular HGB Conc 30.6 g/dl (31.0-36.0); Mean Corpuscular Hemoglobin 30.2 pg (27.0-33.0); Mean Corpuscular Volume 98.5 fL (80.0-98.0); Mean Platelet Volume 9.6 fL (9.4-12.4); Platelet Count 464 X10*3/uL (160-400); Red Blood Count 3.25 X10*6/uL (4.60-5.80); Red Cell Distribution Width 15.4 % (11.0-16.0); White Blood Count 8.7 X10*3/uL (4.8-10.8)
[2021-10-01 14:45] LABS: Albumin Level 3.5 g/dL (3.5-5.0); Anion Gap 12 (12-20); Blood Urea Nitrogen 45 mg/dL (9-16); Calcium 8.2 mg/dL (8.4-10.2); Carbon Dioxide 23 mmol/L (22-29); Chloride 111 mmol/L (96-108); Estimated Glomerular Filt Rate 14; Iron 36 mcg/dL (45-160); Magnesium 2.7 mg/dL (1.6-2.6); Percent Iron Saturation 15 % (15-50); Phosphorus 3.2 mg/dL (2.7-4.5); Potassium 4.2 mmol/L (3.3-5.1); Sodium 142 mmol/L (135-145); Total Iron Binding Capacity 240 mcg/dL (228-428); Unsaturated Iron Binding 204 ug/dL
[2021-10-01 15:09] LABS: Vitamin D 25-OH Total 32.8 ng/mL (>30)
[2021-10-01 15:10] LABS: Creatinine Urine 82.63 mg/dL; Microalbum/Creatinine Ratio Ur 1506.7 ug/mg cr
[2021-10-01 15:26] LABS: Total Protein Urine Random 214 mg/dL (<12)
[2021-10-01 15:42] LABS: Ferritin 790 ng/mL (20-250)
[2021-10-02 16:41] LABS: Calcium (PTHI) 8.4 mg/dL (8.6-10.3); PTHI 90 pg/mL (14-64)
== END 2021-10-01 09:56 | disposition home or self-care (01) ==
LOC: HO.10HDL 09:55
PROVIDERS: Visit Provider Internal Medicine Nephrology
DX: N18.5 Chronic kidney disease, stage 5 (principal); D63.1 Anemia in chronic kidney disease; N25.0 Renal osteodystrophy; E11.21 Type 2 diabetes mellitus with diabetic nephropathy; R80.1 Persistent proteinuria, unspecified
CPT/HCPCS: 36415; 80051; 81001; 82040; 82043; 82306; 82310; 82565; 82728; 83540; 83735; 83970; 84100; 84156; 84520; 85027; 87086; 87088; 87186